=== PATIENT | male | born 1950 | race African-American/Black ===

== ENCOUNTER 2016-10-28 13:40 | Inpatient (IN) | payer MEDICARE ==
[2016-10-28] MEDS ORDERED: NS 0.9% 1000 ML* 1,000 ML IV ONE (14:18)
[2016-10-28 14:27] LABS: Hematocrit 43 % (42-52); Mean Corpuscular HGB Conc 33 g/dl (31-36); Mean Corpuscular Hemoglobin 31 pg (27-31); Mean Corpuscular Volume 94 fL (80-94); Mean Platelet Volume 10 um3 (7.4-10.4); Red Blood Count 4.54 10^6/ul (4.0-5.4); Red Cell Distribution Width 14 % (10.5-15); White Blood Count 4.7 10^3/ul (3.5-10.8)
[2016-10-28 14:39] LABS: ALT 25 U/L (7-52); Albumin 4.1 g/dL (3.2-5.2); Alkaline Phosphatase 47 U/L (34-104); BUN/Creatinine Ratio 15.2 (8-20); Blood Urea Nitrogen 17 mg/dL (6-24); CO2 Carbon Dioxide 24 mmol/L (22-32); Calcium 9.6 mg/dL (8.6-10.3); Chloride 106 mmol/L (101-111); Creatine Kinase 501 U/L (10-223); EGFR African American 84.6 (>60); EGFR Non-African American 65.8 (>60); Globulin 3.4 g/dL (2-4); Glucose 87 mg/dL (70-100); Sodium 137 mmol/L (133-145); Total Protein 7.5 g/dL (6.4-8.9)
--- NOTE | 2016-10-28 14:58 | RAD ---
Indication: Confusion. CT of the brain was performed without IV contrast. There is a large left isodense subdural hematoma with midline shift towards the right. The maximum thickness of the left-sided subdural is approximately 24 mm. There may be some high density material in the dependent portion. Small right isodense subdural hematoma is noted. Ventricular structures are shifted towards the right approximately 12 mm. Mild hydrocephalus is noted. IMPRESSION: LARGE LEFT SUBDURAL HEMATOMA WHICH IS ISODENSE. MIDLINE SHIFT TOWARDS THE RIGHT IS NOTED. SMALL RIGHT SUBDURAL HEMATOMA IS NOTED. FINDINGS DISCUSSED WITH DR. ANDREW AT 1450 HOURS.
--- NOTE | 2016-10-28 14:59 | RAD ---
Indication: Chest pain. Altered mental status. Subdural hematoma on head CT. Comparison: None. Technique: Upright AP 1430 hours Report: Elevated lung volumes. No pulmonary infiltrate, focal pulmonary lesion, pleural effusion, pneumothorax. The heart, pulmonary vasculature, and mediastinal contours are unremarkable. Healed LEFT fourth, fifth, and sixth rib fractures. No acute fracture evident. IMPRESSION: Elevated lung volumes suggest obstructive lung disease. No acute cardiopulmonary process evident.
[2016-10-28 15:15] LABS: TSH (Thyroid Stimulating Horm) 0.51 mcIU/mL (0.34-5.60)
[2016-10-28 15:23] LABS: Acetaminophen < 15 mcg/mL; Alcohol < 10 mg/dL (<10); Salicylate < 2.50 mg/dL (<30)
[2016-10-28 15:36] LABS: Urine Bacteria Absent (Absent); Urine Bilirubin Negative (Negative); Urine Glucose Negative (Negative); Urine Nitrite Negative (Negative)
--- NOTE | 2016-10-28 15:56 | ED ---
Sameera Kramer Matthew, scribed for Chance Yang MD on 10/28/16 at 1420 . Altered Mental Status - HPI Summary HPI Summary: A 66 y/o male presents to the ED with an altered mental status since 1 weeks ago. The patient is confused and does not known the month, year, president, exact hospitalist, or where he lives. He does know his name and that he's in the hospitalist. Associated symptoms include weakness of the lower extremities per his friends, which alternates from left to right. The patient is homeless and states that he has not eaten today. - History Of Current Complaint Chief Complaint: EDAltMentalStatus Stated Complaint: STROKE LIKE SYMPTOMS Time Seen by Provider: 10/28/16 14:11 Hx Obtained From: Patient Hx From Patient Unobtainable Due To: Altered Mental Status Onset/Duration: Still Present Timing: Constant Severity Initially: Moderate Severity Currently: Moderate Character: Confusion Aggravating Factor(s): Unknown Alleviating Factor(s): Unknown Associated Signs And Symptoms: Positive: Weakness - LE - Allergies/Home Medications Allergies/Adverse Reactions: Allergies Allergy/AdvReac Type Severity Reaction Status Date / Time Aspirin Allergy Unknown Unknown Verified 05/09/16 19:04 Reaction Details PMH/Surg Hx/FS Hx/Imm Hx Endocrine/Hematology History: Denies: Hx Anticoagulant Therapy, Hx Diabetes, Hx Thyroid Disease Cardiovascular History: Denies: Hx Hypertension, Hx Pacemaker/ICD Respiratory History: Denies: Hx Asthma, Hx Chronic Obstructive Pulmonary Disease (COPD) History: Denies: Hx Renal Disease Neurological History: Reports: Hx Seizures Denies: Hx Dementia Psychiatric History: Reports: Hx of Violent Episodes Against Others Denies: Hx Eating Disorder, Hx Substance Abuse - Immunization History Date of Tetanus Vaccine: UNK Date of Influenza Vaccine: UNK Infectious Disease History: No Infectious Disease History: Denies: Hx Hepatitis, Hx Human Immunodeficiency Virus (HIV), Hx of Known/ Suspected MRSA, Traveled Outside the [place] in Last 30 Days - Family History Family History: FHx of depression and EtOH abuse - Social History Alcohol Use: None Alcohol Amount: pt states "I drank beer tonight" Substance Use Type: Reports: Marijuana Substance Use Comment - Amount & Last Used: pt denied use tonight Smoking Status (MU): Heavy Every Day Tobacco Smoker Review of Systems Constitutional: Negative Eyes: Negative ENT: Negative Cardiovascular: Negative Respiratory: Negative Gastrointestinal: Negative Genitourinary: Negative Musculoskeletal: Negative Skin: Negative Positive: Weakness - LE Psychological: Normal All Other Systems Reviewed And Are Negative: Yes Physical Exam - Summary Physical Exam Summary: VITAL SIGNS: Reviewed. GENERAL: Patient is a dishevel who is lying comfortable in the stretcher. He seems to be confused, he is alert but not oriented. Patient is not in any acute respiratory distress. HEAD AND FACE: No signs of trauma. No ecchymosis, hematomas or skull depressions. No sinus tenderness. EYES: PERRLA, EOMI x 2, No injected conjunctiva, no nystagmus. No photophobia. EARS: Hearing grossly intact. Ear canals and tympanic membranes are within normal limits. MOUTH: Oropharynx within normal limits. NECK: Supple, trachea is midline, no adenopathy, no JVD, no carotid bruit CHEST: Symmetric, no tenderness at palpation LUNGS: Clear to auscultation bilaterally. No wheezing or crackles. CVS: Regular rate and rhythm, S1 and S2 present, no murmurs or gallops appreciated. ABDOMEN: Soft, non-tender. No signs of distention. No rebound no guarding, and no masses palpated. Bowel sounds are normal. EXTREMITIES: FROM in all major joints, no edema, no cyanosis or clubbing. NEURO: Alert but not oriented. No acute neurological deficits. Speech is normal. SKIN: Dry and warm Triage Information Reviewed: Yes Vital Signs On Initial Exam: Initial Vitals Temp Pulse Resp BP Pulse Ox 98.5 F 87 16 125/109 100 10/28/16 13:42 10/28/16 13:42 10/28/16 13:42 10/28/16 13:42 10/28/16 13:42 Vital Signs Reviewed: Yes Diagnostics - Vital Signs Vital Signs Temp Pulse Resp BP Pulse Ox 10/28/16 13:42 98.5 F 87 16 125/109 100 - Laboratory Lab Results: Lab Results 10/28/16 10/28/16 10/28/16 Range/Units 14:13 14:15 14:15 WBC 4.7 (3.5-10.8) 10^3/ul RBC 4.54 (4.0-5.4) 10^6/ul Hgb 14.0 (14.0-18.0) g/dl Hct 43 (42-52) % MCV 94 (80-94) fL MCH 31 (27-31) pg MCHC 33 (31-36) g/dl RDW 14 (10.5-15) % Plt Count 208 (150-450) 10^3/ul MPV 10 (7.4-10.4) um3 Neut % (Auto) 56.9 (38-83) % Lymph % (Auto) 26.0 (25-47) % [place] % (Auto) 12.7 H (1-9) % Eos % (Auto) 2.0 (0-6) % Baso % (Auto) 2.4 H (0-2) % Absolute Neuts (auto) 2.7 (1.5-7.7) 10^3/ul Absolute Lymphs (auto) 1.2 (1.0-4.8) 10^3/ul Absolute Monos (auto) 0.6 (0-0.8) 10^3/ul Absolute Eos (auto) 0.1 (0-0.6) 10^3/ul Absolute Basos (auto) 0.1 (0-0.2) 10^3/ul Absolute Nucleated RBC 0 10^3/ul Nucleated RBC % 0.1 Sodium 137 (133-145) mmol/L Potassium Pending Chloride 106 (101-111) mmol/L Carbon Dioxide 24 (22-32) mmol/L Anion Gap Pending BUN 17 (6-24) mg/dL Creatinine 1.12 (0.67-1.17) mg/dL Est GFR ( Amer) 84.6 (>60) Est GFR (Non-Af Amer) 65.8 (>60) BUN/Creatinine Ratio 15.2 (8-20) Glucose 87 (70-100) mg/dL POC Glucose (mg/dL) 98 (74-106) mg/dL Lactic Acid (0.5-2.0) mmol/L Calcium 9.6 (8.6-10.3) mg/dL Magnesium 2.0 (1.9-2.7) mg/dL Total Bilirubin 0.70 (0.2-1.0) mg/dL AST Pending ALT 25 (7-52) U/L Alkaline Phosphatase 47 (34-104) U/L Total Creatine Kinase 501 H (10-223) U/L Troponin I 0.00 (<0.04) ng/mL Total Protein 7.5 (6.4-8.9) g/dL Albumin 4.1 (3.2-5.2) g/dL Globulin 3.4 (2-4) g/dL Albumin/Globulin Ratio 1.2 (1-3) TSH Pending Salicylates Pending Acetaminophen Pending Serum Alcohol Pending 10/28/16 Range/Units 14:15 WBC (3.5-10.8) 10^3/ul RBC (4.0-5.4) 10^6/ul Hgb (14.0-18.0) g/dl Hct (42-52) % MCV (80-94) fL MCH (27-31) pg MCHC (31-36) g/dl RDW (10.5-15) % Plt Count (150-450) 10^3/ul MPV (7.4-10.4) um3 Neut % (Auto) (38-83) % Lymph % (Auto) (25-47) % [place] % (Auto) (1-9) % Eos % (Auto) (0-6) % Baso % (Auto) (0-2) % Absolute Neuts (auto) (1.5-7.7) 10^3/ul Absolute Lymphs (auto) (1.0-4.8) 10^3/ul Absolute Monos (auto) (0-0.8) 10^3/ul Absolute Eos (auto) (0-0.6) 10^3/ul Absolute Basos (auto) (0-0.2) 10^3/ul Absolute Nucleated RBC 10^3/ul Nucleated RBC % Sodium (133-145) mmol/L Potassium Chloride (101-111) mmol/L Carbon Dioxide (22-32) mmol/L Anion Gap BUN (6-24) mg/dL Creatinine (0.67-1.17) mg/dL Est GFR ( Amer) (>60) Est GFR (Non-Af Amer) (>60) BUN/Creatinine Ratio (8-20) Glucose (70-100) mg/dL POC Glucose (mg/dL) (74-106) mg/dL Lactic Acid 2.2 H* (0.5-2.0) mmol/L Calcium (8.6-10.3) mg/dL Magnesium (1.9-2.7) mg/dL Total Bilirubin (0.2-1.0) mg/dL AST ALT (7-52) U/L Alkaline Phosphatase (34-104) U/L Total Creatine Kinase (10-223) U/L Troponin I (<0.04) ng/mL Total Protein (6.4-8.9) g/dL Albumin (3.2-5.2) g/dL Globulin (2-4) g/dL Albumin/Globulin Ratio (1-3) TSH Salicylates Acetaminophen Serum Alcohol Result Diagrams: 10/28/16 14:15 10/28/16 14:15 Lab Statement: Any lab studies that have been ordered have been reviewed, and results considered in the medical decision making process. - Radiology CXR Xray Interpretation: No Acute Changes - IMPRESSION: Elevated lung volumes suggest obstructive lung disease. No acute cardiopulmonary process evident. Radiology Interpretation Completed By: Radiologist - CT Brain CT CT Interpretation: Positive (See Comments) - IMPRESSION: LARGE LEFT SUBDURAL HEMATOMA WHICH IS ISODENSE. MIDLINE SHIFT TOWARDS THE RIGHT IS NOTED. SMALL RIGHT SUBDURAL HEMATOMA IS NOTED. CT Interpretation Completed By: Radiologist - EKG 13:48 Cardiac Rate: NL - 73 bpm EKG Rhythm: Sinus Rhythm Ectopy: PVCs - multiple EKG Interpretation: No ST elevations Altered Mental Statu Course/Dx - Course Assessment/Plan: A 66 y/o male presents to the ED with a friend who reports the patient is having AMS. I was unable to obtain an HPI, because the patient has acute AMS. Blood work WNL expect a lactic acid 2.2 and total creatinine kinase of 501. Head CT read by radiologist shows large left subdural hematoma with midline shift to the right of approximately 12mm. He also has a small right subdural hematoma. I discussed my physical findings with Dr. Suazo. He assessed the patient and will admit the patient into his services with the possibility of performing a silvia hole. - Diagnoses Differential Diagnosis/HQI/PQRI: CVA, Intoxication, Intracranial Bleed, Metabolic Disorder, Overdose, TIA Discharge Diagnoses: Acute subdural hematoma - Provider Notifications Discussed Care Of Patient With: Dr. Leal (Radiology) at 14:50 -- I was notified of Brain CT findings. Dr. Suazo (Neurosurgery) at 14:58 -- Notified of patient's history and will evaluate the patient. Dr. Suazo (Neurosurgery) at 15:32 -- Will admit the patient. Discharge - Discharge Plan Condition: Stable Disposition: ADMITTED TO [facility] Referrals: Aidan Johnson, OSTEOPATHIC PHYSICIAN [Primary Care Provider] - The documentation as recorded by the Sameera esquivel Matthew accurately reflects the service I personally performed and the decisions made by Trey flores Walter, MD.
[2016-10-28 15:58] LABS: Benzodiazepine Urine Screen None Detected (None Detect)
[2016-10-28] MEDS ORDERED: Lidocain 1% EPI 1:100,000 * 30 ML MDV ONE (16:17)
[2016-10-28] MEDS ORDERED: Thrombin 5,000 UNITS* 1 APPLIC KIT - topical use - TOPICAL ONE (16:17)
[2016-10-28] MEDS ORDERED: fentaNYL* 50 MCG/ML 2 ML VIAL (100 MCG VIAL) ONE ×2 (16:22→16:56)
[2016-10-28] MEDS ORDERED: ceFAZolin 2 GM PREMIX (*) 2 GM/50 ML BAG IVPB ONE (16:30)
[2016-10-28] MEDS ORDERED: Propofol* 10 MG/ML 20 ML BTL IV PUSH ONE (16:52)
[2016-10-28] MEDS ORDERED: Ondansetron INJ* 2 MG/ML VIAL ONE (16:52)
[2016-10-28] MEDS ORDERED: Dexamethasone IV* 4 MG/ML 1 ML (4 MG) ONE (16:52)
[2016-10-28] MEDS ORDERED: Lidocaine 2% MPF* 2 ML VIAL ONE (16:52)
[2016-10-28] MEDS ORDERED: Succinylcholine* 20 MG/ML 10 ML VIAL ONE (16:52)
[2016-10-28] MEDS ORDERED: NS 0.9% IV ONE (17:00)
[2016-10-28] MEDS ORDERED: PHENYTOIN IV ONE (17:00)
[2016-10-28] MEDS ORDERED: Phenylephrine IV* 40 MCG/ML 10 ML SYRINGE ONE (17:17)
[2016-10-28] MEDS ORDERED: EPHEDrine (Pressors)* 50 MG/ML VIAL ONE (17:24)
[2016-10-28 17:28] LABS: AST 40 U/L (13-39); Anion Gap 7 mmol/L (2-11); Potassium 4.7 mmol/L (3.5-5.0)
[2016-10-28] MEDS ORDERED: fentaNYL* 50 MCG/ML 2 ML VIAL (100 MCG VIAL) IV PRN (17:50)
[2016-10-28] MEDS ORDERED: HYDROmorphone INJ* 1 MG/ML CARPUJECT SYRINGE IV PRN (17:50)
[2016-10-28] MEDS ORDERED: NS 0.9% 1000 ML* 1,000 ML IV SCH (18:00)
[2016-10-28] MEDS ORDERED: Morphine INJ* 4 MG/ML 1 ML CARPUJECT IV PRN (18:02)
[2016-10-28] MEDS ORDERED: Labetalol IV* 5 MG/ML 20 ML VIAL ONE (18:24)
[2016-10-28] MEDS ORDERED: hydrALAZINE IV* 20 MG/ML VIAL IV SLOW PU PRN (18:29)
[2016-10-28] MEDS ORDERED: Labetalol IV* 5 MG/ML 20 ML VIAL IV PUSH PRN (18:29)
[2016-10-28 19:01] LABS: Hematocrit 38 % (42-52); Hemoglobin 12.4 g/dl (14.0-18.0); Mean Corpuscular HGB Conc 33 g/dl (31-36); Mean Corpuscular Hemoglobin 31 pg (27-31); Mean Corpuscular Volume 94 fL (80-94); Mean Platelet Volume 10 um3 (7.4-10.4); Red Blood Count 4.03 10^6/ul (4.0-5.4); Red Cell Distribution Width 14 % (10.5-15); White Blood Count 5.7 10^3/ul (3.5-10.8)
[2016-10-28 19:12] LABS: BUN/Creatinine Ratio 14.7 (8-20); Calcium 8.8 mg/dL (8.6-10.3); EGFR African American 94.3 (>60); EGFR Non-African American 73.3 (>60); Potassium 4.1 mmol/L (3.5-5.0)
[2016-10-28] MEDS ORDERED: Phenytoin IV(*) 50 MG/ML 2 ML VIAL (100 MG) IV SCH (21:00)
[2016-10-28] MEDS: PHENYTOIN IVPB SCH (22:45)
[2016-10-28] MEDS: NS 0.9% IVPB SCH (22:45)
[2016-10-29] MEDS: PHENYTOIN IVPB SCH (05:21)
[2016-10-29] MEDS: NS 0.9% IVPB SCH (05:21)
--- NOTE | 2016-10-29 07:53 | RAD ---
HISTORY: Follow-up subdural drainage COMPARISONS: October 28, 2016, August 24, 2016 TECHNIQUE: Multiple contiguous axial CT scans were obtained of the head without intravenous contrast. Coronal and sagittal multiplanar reformations are also submitted for review. FINDINGS: HEMORRHAGE/INFARCT: There is no parenchymal hemorrhage. There is no acute infarct. MASSES/SHIFT: There is subfalcine shift to the right approximately 1 cm slightly decreased from the October 28, 2016 examination. There is effacement of the basal cisterns on the left. The foramen magnum is patent. There is no parenchymal mass. EXTRA-AXIAL SPACES: There is pneumocephalus. There is a large left mixed acute and subacute subdural hematoma. On the right, there is a crescentic high attenuation fluid collection measuring 1.6 cm in depth that, on coronal images appears superficial to the subdural drain and may be epidural. Surgical drains are noted in the subdural space bilaterally. On the left, this measures up to 2 cm in depth, decreased from the previous examination. On the right, there is minimal residual subdural separate from the aforementioned extra-axial fluid collection. SULCI AND VENTRICLES: There is mass effect upon the ventricles. CEREBRUM: There are no focal parenchymal abnormalities. BRAINSTEM: There are no focal parenchymal abnormalities. CEREBELLUM: There are no focal parenchymal abnormalities. VESSELS: The vessels are grossly normal. PARANASAL SINUSES: The paranasal sinuses are clear. ORBITS: The orbits are unremarkable. BONES AND SOFT TISSUE: There is postsurgical change to the skull. OTHER: None IMPRESSION: 1. STATUS POST PLACEMENT OF BILATERAL SUBDURAL DRAINS. THERE IS ASSOCIATED PNEUMOCEPHALUS. 2. THE SUBDURAL COLLECTIONS BILATERALLY ARE PERSISTENT BUT DECREASED IN SIZE. 3. THERE IS A CRESCENTIC HIGH ATTENUATION FLUID COLLECTION ON THE RIGHT THAT IS SUPERFICIAL TO THE SUBDURAL DRAIN AND MAY REPRESENT INTERVAL DEVELOPMENT OF AN EPIDURAL HEMATOMA. 4. THERE IS PERSISTENT, BUT DECREASING, SUBFALCINE SHIFT TO THE RIGHT WITH PARTIAL EFFACEMENT OF THE BASAL CISTERNS. 5. PRELIMINARY FINDINGS WERE DISCUSSED WITH DR. CORREA AT APPROXIMATELY 7:49 AM ON OCTOBER 29, 2016.
[2016-10-29] MEDS ORDERED: HYDROcodone/ACETAMIN 5-325 MG* 1 TAB PO PRN (10:28)
--- NOTE | 2016-10-29 10:33 | PN ---
Progress Note - Progress Note SOAP: Subjective: []POD # 1 Awake, alert denies headache eating breakfast this am Objective: []F/U CT marked pneumocephalus Slight increase in blood on right superiorly Neuro intact Assessment: []Drains pulled back slightly Plan: []Stable post op Will convert Dilantin to PO Hep lock fluids Overall looks good
[2016-10-29] MEDS: Phenytoin CAP(*) 100 MG CAP.ER PO SCH ×2 (15:20→22:04)
[2016-10-30] MEDS: Phenytoin CAP(*) 100 MG CAP.ER PO SCH ×3 (09:42→21:05)
--- NOTE | 2016-10-30 10:29 | PN ---
Progress Note - Progress Note SOAP: Subjective: []POD # 2 Doing well,complains of mild headache Drains intact Tolerating diet well Objective: []Neuro intact Less drainage from left Right drain removed Assessment: []Stable post op Plan: []Increase activity Will get up in chair
[2016-10-31] MEDS ORDERED: HYDROcodone/ACETAMIN 5-325 MG* 1 TAB PO PRN (07:31)
--- NOTE | 2016-10-31 07:34 | PN ---
Progress Note - Progress Note SOAP: Subjective: []POD # 3 Awake,alert No complaints of headache Drain with minimal output Objective: []Moves all extremities well Follows commands Assessment: [] Stable post op Plan: []Transfer to floor
[2016-10-31] MEDS: Phenytoin CAP(*) 100 MG CAP.ER PO SCH ×3 (08:45→19:48)
--- NOTE | 2016-11-01 04:48 | OP ---
DATE OF OPERATION: 10/28/16 - ROOM #334 DATE OF : 52 SURGEON: Reinaldo Suazo MD. ANESTHESIOLOGIST: Qi Ma MD ANESTHESIA: General. PRE-OP DIAGNOSIS: Bilateral subacute subdural hematomas. POST-OP DIAGNOSIS: Bilateral subacute subdural hematomas. OPERATIVE PROCEDURE: Bilateral silvia hole drainage of subacute subdural hematomas. DESCRIPTION OF PROCEDURE: The patient was placed on the operating table in the supine position and after satisfactory general anesthesia was obtained, both sides of the head were clipped, prepped and draped for bilateral placement of silvia holes for drainage of subdurals. The patient had presented with a very large left-sided subdural, extending from the frontal to the parieto-occipital areas. On the left side, one silvia hole was placed in the inferior frontal area just in front of the hairline, with a second silvia hole more superiorly in the frontoparietal junction area snf between the ear and the vertex. The initial silvia hole was the posterior silvia hole which was infiltrated with 1% Xylocaine with epinephrine. It was then turned down sharply to the periosteum which was stripped away. Utilizing the power drill, a single silvia hole was placed. The dura was then opened with the monopolar cautery and brisk flow of maroon colored subdural fluid exudate under pressure. The subdural space was then irrigated after which the left frontal silvia hole was opened in a similar manner. Upon opening the left frontal silvia hole, there was noted to be more subdural fluid expressed out through the posterior silvia hole. These silvia holes were then irrigated and the space appeared to communicate. A drain was placed in the more posterior silvia hole and tunneled out anteriorly. Gelfoam was then placed over the silvia hole defect and the galea reapproximated with 3-0 Vicryl, with the skin closed with skin clips. Attention was then directed to the right side where a silvia hole was made approximately 5 cm to the right of midline. This was in line with the posterior aspect of the ear. This incision was infiltrated with 1% Xylocaine with epinephrine, after which it was turned down sharply to the periosteum, which was stripped away. A single silvia hole was placed in this region and again, somewhat less impressive subdural fluid exudate under less pressure. The cortex was pushed downward carefully with a [place] dissector and additional subdural delivered for removal. A drain was then placed in this region as well, and tunneled out anteriorly. Both drains were hooked to an [id number] AccuDrain system and secured. The estimated blood loss was less than 50 cc, and the final sponge, patties, and needle counts were correct. The patient was taken to the recovery room, extubated, and in stable condition. [id number]/[facility] #: [id number] SAM
[2016-11-01] MEDS: Phenytoin CAP(*) 100 MG CAP.ER PO SCH ×3 (08:44→21:24)
--- NOTE | 2016-11-01 11:08 | PN ---
Progress Note - Progress Note SOAP: Subjective: [This is a 66 year old male s/p silvia holes for subacute subdural hematoma removal, POD #4. He is feeling well this morning and has no complaints. Denies headache. He has been up out of bed without difficulty. ] Objective: [ Vital Signs: Temp Pulse Resp BP Pulse Ox 98.1 F 56 16 124/64 100 11/01/16 08:09 11/01/16 08:09 11/01/16 08:09 11/01/16 08:09 11/01/16 08:09 General: Alert and laying comfortably in bed. Neuro: Speech is coherent. Motor and sensory intact. Extremities: Full ROM throughout.] Assessment: [This patient is stable, neurologically intact and is following a satisfactory post-operative course at this time. Pain is well controlled. ] Plan: [1. Repeat CT brain in morning. 2. Phenytoin level in morning. 3. Continue current pain management.]
--- NOTE | 2016-11-02 08:40 | RAD ---
HISTORY: Follow-up subdural drainage COMPARISONS: October 29, 2016 TECHNIQUE: Multiple contiguous axial CT scans were obtained of the head without intravenous contrast. FINDINGS: HEMORRHAGE/INFARCT: There is no parenchymal hemorrhage. There is no acute infarct. MASSES/SHIFT: There is minimal persistent subfalcine shift to the right of approximately 0.2 cm. This has decreased from the previous examination. The basal cisterns are preserved. EXTRA-AXIAL SPACES: Again noted is pneumocephalus, which is decreased. There is a left frontal parietal extra-axial fluid collection consistent with subacute subdural hematoma that measures up to 0.9 cm in depth. This is decreased in size compared to the previous examination. There is been interval removal of a subdural drain. Again noted is a right frontoparietal subdural fluid collection measuring approximately 0.5 cm in size. This is similar to the previous examination. Again noted is a high attenuation fluid collection that is crescentic and does not cross the sutures measuring up to 1.8 cm in depth. This is similar in size to the previous examination, though the blood products demonstrating evolutionary changes. There is been interval removal of a subdural drainage catheter of the right. SULCI AND VENTRICLES: The sulci and ventricles are normal in size and position for the patient's stated age. CEREBRUM: There are no focal parenchymal abnormalities. BRAINSTEM: There are no focal parenchymal abnormalities. CEREBELLUM: There are no focal parenchymal abnormalities. VESSELS: The vessels are grossly normal. PARANASAL SINUSES: The paranasal sinuses are clear. ORBITS: The orbits are unremarkable. BONES AND SOFT TISSUE: There is post surgical change to the skull. OTHER: None IMPRESSION: 1. MINIMAL PERSISTENT SUBFALCINE SHIFT, IMPROVED FROM THE PREVIOUS EXAMINATION. 2. THERE ARE PERSISTENT BILATERAL SUBDURAL HEMATOMAS, GREATER ON THE LEFT ON THE RIGHT. ON THE LEFT THIS IS DECREASED IN SIZE. ON THE RIGHT, THIS IS MINIMAL, BUT ESSENTIALLY STABLE. THERE HAS BEEN INTERVAL REMOVAL OF SUBDURAL DRAINAGE CATHETERS. 3. AGAIN NOTED IS A CRESCENTIC EXTRA-AXIAL FLUID COLLECTION CONCERNING FOR AN EPIDURAL HEMATOMA ALONG THE RIGHT POSTERIOR FRONTAL LOBE. THIS IS STABLE IN SIZE.
[2016-11-02] MEDS: Phenytoin CAP(*) 100 MG CAP.ER PO SCH ×3 (09:22→20:38)
[2016-11-03 07:52] VITALS: BP 127/78
[2016-11-03] MEDS: Phenytoin CAP(*) 100 MG CAP.ER PO SCH (08:19)
--- NOTE | 2016-11-03 10:04 | PN ---
Progress Note - Progress Note SOAP: Subjective: [This is a 66 year old male s/p silvia holes for subacute subdural hematoma evacuation on 10/28/15. He is feeling well this morning. He denies headache, vision changes, chest pain and difficulty breathing. He has been up ambulating independently without difficulty. Per social work and patient, he lives at a friends apartment and will return there after discharge. ] Objective: [ Vital Signs: Temp Pulse Resp BP Pulse Ox 98.3 F 61 18 127/78 100 11/03/16 07:41 11/03/16 07:41 11/03/16 08:00 11/03/16 07:41 11/03/16 08:00 General: Alert and oriented. No distress. Neuro: Speech is clear and coherent. Motor and sensory intact. Coordination intact. Incision: Incisions to the right and left head intact with dixie. No signs of infection. No swelling. Nontender. Extremities: Full ROM] Assessment: [This patient is following a satisfactory post-operative course. He is neurologically stable. ] Plan: [1. Discharge home today. 2. Discharge instructions were discussed with the patient. ]
--- NOTE | 2017-03-13 03:50 | DS ---
DISCHARGE SUMMARY: DATE OF ADMISSION: 10/28/16 DATE OF DISCHARGE: 11/03/16 DISCHARGE DIAGNOSIS: Bilateral subacute subdural hematoma. SPECIAL PROCEDURE: [place] hole for evacuation of subdural hematoma. HOSPITAL COURSE: This 66-year-old male presented to the [facility] ER. On the day of admission, actually he was found by his friend to be unresponsive. CT of the brain revealed bilateral subacute subdural hematoma. He was taken to the operating room for emergent life-saving surgical treatment. Bilateral silvia holes were placed for evacuation of subdural blood. Postoperatively, he was intact neurologically. Followup CT scan of brain on postop day 1 showed marked pneumocephalus. Drains were adjusted on postop day 1. On postop day 2, the right subdural drain was removed. He was eating and drinking without difficulty and communicating well and speech coherent. On postop day 3, he was transferred out of the ICU to the short stay surgical floor. He continued to improve there. He was ambulating independently. He was eating and drinking without difficulty. He denied headache and pain. On postop day 6, he was discharged home to the care of his friend. He is ambulating well and has no symptomatic complaints. He will be seen in the office in approximately 2 weeks for followup. DISCHARGE INSTRUCTIONS: Including wound care and activity level were discussed with the patient and provided. He was advised to return to the emergency room if he develops severe headache that does not improve over 1 hour. DISCHARGE MEDICATIONS: Phenytoin 300 mg by mouth at bedtime. JYOTSNA JAMES [id number]/[facility] #: [id number] SAM
== END 2016-11-03 10:45 | disposition home or self-care (01) | DRG 27 ==
LOC: ED 13:40 → OR 15:56 → ICU 17:54 → SSU 10-31 10:57
PROVIDERS: ADMIT Neurological Surgery; ATTEND Neurological Surgery
PROC: 00940ZZ Drainage of Intracranial Subdural Space, Open Approach (ICD-10-PCS; principal; 2016-10-28 16:30)
DX: S06.5X0A Traumatic subdural hemorrhage without loss of consciousness, initial encounter (principal); F17.200 Nicotine dependence, unspecified, uncomplicated; F12.90 Cannabis use, unspecified, uncomplicated; R29.6 Repeated falls; R51 Headache; Z59.0 Homelessness; Z88.8 Allergy status to other drugs, medicaments and biological substances; Z81.1 Family history of alcohol abuse and dependence; Z81.8 Family history of other mental and behavioral disorders; Z72.89 Other problems related to lifestyle
CPT/HCPCS: 36415; 70450; 71010; 80048; 80053; 80185; 80307; 80320; 80329; 81003; 81015; 82140; 82550; 83605; 83735; 84443; 84484; 85025; 87086; 93005; 94760; 99406; A9270-GY; G0480; J0330; J0690; J1100; J1165; J2270; J2405; J2704; J3010

== ENCOUNTER 2016-12-24 19:17 | Inpatient (IN) | payer MEDICARE ==
[2016-12-24] MEDS ORDERED: diPHENhydraMINE IV* 50 MG/ML 1 ml VIAL (BENADRYL) ONE (19:25)
[2016-12-24] MEDS ORDERED: LORazepam INJ* 2 MG/ML 1 ML VIAL ONE (19:25)
[2016-12-24] MEDS ORDERED: Haloperidol INJ IV/IM* 5 MG/ML AMP ONE (19:25)
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
--- NOTE | 2016-12-24 21:19 | RAD ---
INDICATION: Altered mental status, history subdural hematoma. COMPARISON: Comparison is made with a prior CT of the brain from [facility] 2016. TECHNIQUE: Contiguous axial sections of the brain were obtained from the skull base to the vertex without contrast. FINDINGS: There are bilateral subdural hematomas in the frontal parietal regions. The right subdural hematoma has decreased in size and density from the prior study measuring up to 7 mm in thickness and previously measuring up to 1.2 cm in thickness. The subdural hematoma on the left side is heterogeneous with mixed areas of decreased and increased density consistent with rehemorrhage. This subdural hematoma is slightly smaller than on the prior study measuring approximately 1.1 cm in greatest dimension and previously measuring up to 1.3 cm. There is mild compression of the left lateral ventricle and mild subfalcine herniation of approximately 2 to 3 mm. The mass effect on the lateral ventricles has decreased. The subfalcine herniation unchanged. In addition there is a small area of decreased attenuation present within the right caudate nucleus consistent with a chronic lacunar infarct. No other focal abnormalities are seen. There are bilateral surgical silvia holes present. There is a small air-fluid level within the left maxillary sinus. The visualized portion appeared nasal sinuses and mastoid air cells otherwise appear clear. IMPRESSION: THERE ARE BILATERAL SUBDURAL HEMATOMAS. THE SUBDURAL HEMATOMA ON THE RIGHT SIDE HAS DECREASED IN SIZE AND ATTENUATION FROM THE PRIOR STUDY. THE SUBDURAL HEMATOMA ON THE LEFT SIDE IS HETEROGENEOUS WITH AREAS OF INCREASED AND DECREASED DENSITY CONSISTENT WITH REHEMORRHAGE. THE LEFT-SIDED SUBDURAL HEMATOMA IS SLIGHTLY SMALLER THAN ON THE PRIOR EXAM. THERE IS MILD SUBFALCINE HERNIATION WHICH IS UNCHANGED.
[2016-12-24 22:22] LABS: Hematocrit 38 % (42-52); Hemoglobin 12.4 g/dl (14.0-18.0); Mean Corpuscular HGB Conc 33 g/dl (31-36); Mean Corpuscular Hemoglobin 32 pg (27-31); Mean Corpuscular Volume 96 fL (80-94); Mean Platelet Volume 9 um3 (7.4-10.4); Red Blood Count 3.95 10^6/ul (4.0-5.4); Red Cell Distribution Width 14 % (10.5-15); White Blood Count 8.8 10^3/ul (3.5-10.8)
[2016-12-24 22:36] LABS: ALT 15 U/L (7-52); AST 36 U/L (13-39); Albumin 3.6 g/dL (3.2-5.2); Alkaline Phosphatase 72 U/L (34-104); Anion Gap 8 mmol/L (2-11); BUN/Creatinine Ratio 11.8 (8-20); Blood Urea Nitrogen 13 mg/dL (6-24); CO2 Carbon Dioxide 26 mmol/L (22-32); Calcium 8.7 mg/dL (8.6-10.3); Chloride 106 mmol/L (101-111); EGFR African American 86.4 (>60); EGFR Non-African American 67.2 (>60); Globulin 3.1 g/dL (2-4); Glucose 65 mg/dL (70-100); Potassium 4.1 mmol/L (3.5-5.0); Sodium 140 mmol/L (133-145); Total Protein 6.7 g/dL (6.4-8.9)
[2016-12-24 23:02] LABS: Acetaminophen < 15 mcg/mL; Alcohol 105 mg/dL (<10); Salicylate < 2.50 mg/dL (<30)
[2016-12-24 23:12] LABS: TSH (Thyroid Stimulating Horm) 0.64 mcIU/mL (0.34-5.60)
[2016-12-25] MEDS ORDERED: Al Hydrox/Mg Hydrox/Simet LIQ* 30 ML UDC PO PRN (07:53)
[2016-12-25] MEDS ORDERED: Mouth Piece, Nicotine* 1 EACH CARTRIDGE INH SCH (07:53)
[2016-12-25] MEDS ORDERED: Acetaminophen TAB* 325 MG PO PRN (07:53)
[2016-12-25] MEDS: Haloperidol TAB* 5 MG PO SCH (08:34)
[2016-12-25] MEDS: Vitamin THERAPEUTIC TAB PO SCH (08:34)
[2016-12-25] MEDS ORDERED: Mouth Piece, Nicotine* 1 EACH CARTRIDGE ONE (13:24)
[2016-12-25] MEDS: Nicotine Inhaler* 10 MG AMP INH PRN ×2 (13:24→19:45)
[2016-12-25] MEDS ORDERED: Nicotine GUM* 2 MG PO PRN (13:26)
[2016-12-25] MEDS ORDERED: Nicotine Inhaler* 10 MG AMP INH PRN (13:26)
[2016-12-25] MEDS ORDERED: Mouth Piece, Nicotine* 1 EACH CARTRIDGE INH ONE (14:00)
[2016-12-25] MEDS ORDERED: Phenytoin CAP(*) 100 MG CAP.ER PO SCH (21:00)
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
[2016-12-26] MEDS: Nicotine Inhaler* 10 MG AMP INH PRN ×3 (05:45→13:40)
[2016-12-26 07:20] LABS: HDL Cholesterol 76.7 mg/dL
[2016-12-26 07:21] LABS: Phenytoin 4.9 mcg/mL (10-20)
[2016-12-26 08:40] VITALS: BP 136/72
[2016-12-26] MEDS: Vitamin THERAPEUTIC TAB PO SCH (08:40)
[2016-12-26] MEDS: Haloperidol TAB* 5 MG PO SCH (08:40)
--- NOTE | 2016-12-26 14:48 | PN ---
MHU: Group Therapy Note - Service Type Service Type: [id number] Group Psychotherapy - Cognitive Behavioral Group Therapy ( CBT):Patient was attentive and participatory in CBT programming this morning, and remained in good behavioral control. Patient expressed positive insights regarding relevant treatment interventions and goals.
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
== END 2016-12-26 14:25 | disposition home or self-care (01) | DRG 885 ==
LOC: ED 19:17 → BSU 12-25 05:49
PROVIDERS: ADMIT Psychiatry & Neurology Psychiatry; ATTEND Psychiatry & Neurology Psychiatry
DX: F20.9 Schizophrenia, unspecified (principal); R45.850 Homicidal ideations; I10 Essential (primary) hypertension; E78.5 Hyperlipidemia, unspecified; F10.129 Alcohol abuse with intoxication, unspecified; Y90.5 Blood alcohol level of 100-119 mg/100 ml; F17.210 Nicotine dependence, cigarettes, uncomplicated; Z87.820 Personal history of traumatic brain injury
CPT/HCPCS: 36415; 70450; 80053; 80061; 80185; 80320; 80329; 83036; 84443; 85025; A9270-GY; G0480; J1200; J1630; J2060

== ENCOUNTER 2016-12-30 15:54 | Inpatient (IN) | payer MEDICARE ==
[2016-12-30 16:41] LABS: Hematocrit 34 % (42-52); Hemoglobin 11.3 g/dl (14.0-18.0); Mean Corpuscular HGB Conc 34 g/dl (31-36); Mean Corpuscular Hemoglobin 32 pg (27-31); Mean Corpuscular Volume 95 fL (80-94); Mean Platelet Volume 8 um3 (7.4-10.4); Red Blood Count 3.57 10^6/ul (4.0-5.4); Red Cell Distribution Width 15 % (10.5-15); White Blood Count 7.2 10^3/ul (3.5-10.8)
[2016-12-30 16:56] LABS: ALT 16 U/L (7-52); AST 32 U/L (13-39); Albumin 3.9 g/dL (3.2-5.2); Alkaline Phosphatase 70 U/L (34-104); Anion Gap 9 mmol/L (2-11); BUN/Creatinine Ratio 12.7 (8-20); Blood Urea Nitrogen 14 mg/dL (6-24); CO2 Carbon Dioxide 22 mmol/L (22-32); Calcium 9.3 mg/dL (8.6-10.3); Chloride 102 mmol/L (101-111); EGFR African American 86.4 (>60); EGFR Non-African American 67.2 (>60); Globulin 3.1 g/dL (2-4); Glucose 75 mg/dL (70-100); Potassium 4.2 mmol/L (3.5-5.0); Sodium 133 mmol/L (133-145)
[2016-12-30 17:05] LABS: Acetaminophen < 15 mcg/mL; Alcohol < 10 mg/dL (<10); Salicylate < 2.50 mg/dL (<30)
[2016-12-30 17:15] LABS: TSH (Thyroid Stimulating Horm) 1.79 mcIU/mL (0.34-5.60)
[2016-12-30] MEDS ORDERED: Nicotine GUM* 2 MG PO PRN (21:15)
[2016-12-30] MEDS ORDERED: Al Hydrox/Mg Hydrox/Simet LIQ* 30 ML UDC PO PRN (21:15)
[2016-12-30] MEDS ORDERED: Mouth Piece, Nicotine* 1 EACH CARTRIDGE INH SCH (21:15)
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
[2016-12-31] MEDS: Nicotine Inhaler* 10 MG AMP INH PRN ×2 (08:33→19:39)
[2016-12-31] MEDS: Haloperidol TAB* 5 MG PO SCH ×2 (08:34→08:37)
[2016-12-31] MEDS: Vitamin THERAPEUTIC TAB PO SCH (08:34)
[2016-12-31] MEDS: Phenytoin CAP(*) 100 MG CAP.ER PO SCH (08:35)
[2016-12-31] MEDS: Cyanocobalamin TAB* 500 MCG PO SCH (14:00)
[2016-12-31] MEDS: Thiamine TAB* 100 MG TAB PO SCH (14:01)
[2016-12-31] MEDS: Folic Acid TAB* 1 MG PO SCH (14:01)
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
[2016-12-31] MEDS: Divalproex DR TAB(*) 250 MG PO SCH (21:06)
[2017-01-01] MEDS: Acetaminophen TAB* 325 MG PO PRN (07:35)
[2017-01-01] MEDS: Nicotine Inhaler* 10 MG AMP INH PRN ×6 (07:36→21:19)
[2017-01-01] MEDS: Haloperidol TAB* 5 MG PO SCH (09:54)
[2017-01-01] MEDS: Cyanocobalamin TAB* 500 MCG PO SCH (09:54)
[2017-01-01] MEDS: Phenytoin CAP(*) 100 MG CAP.ER PO SCH (09:54)
[2017-01-01] MEDS: Folic Acid TAB* 1 MG PO SCH (09:54)
[2017-01-01] MEDS: Divalproex DR TAB(*) 250 MG PO SCH ×2 (09:54→21:14)
[2017-01-01] MEDS: Vitamin THERAPEUTIC TAB PO SCH (09:55)
[2017-01-01] MEDS: Thiamine TAB* 100 MG TAB PO SCH (09:55)
[2017-01-02] MEDS: Acetaminophen TAB* 325 MG PO PRN (07:41)
[2017-01-02] MEDS: Haloperidol TAB* 5 MG PO SCH (08:53)
[2017-01-02] MEDS: Phenytoin CAP(*) 100 MG CAP.ER PO SCH (08:53)
[2017-01-02] MEDS: Nicotine Inhaler* 10 MG AMP INH PRN ×5 (08:54→21:17)
[2017-01-02] MEDS: Vitamin THERAPEUTIC TAB PO SCH (08:54)
[2017-01-02] MEDS: Folic Acid TAB* 1 MG PO SCH (08:54)
[2017-01-02] MEDS: Thiamine TAB* 100 MG TAB PO SCH (08:54)
[2017-01-02] MEDS: Divalproex DR TAB(*) 250 MG PO SCH ×2 (08:54→21:16)
[2017-01-02] MEDS: Cyanocobalamin TAB* 500 MCG PO SCH (08:54)
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
[2017-01-03] MEDS: Nicotine Inhaler* 10 MG AMP INH PRN ×6 (04:15→23:30)
[2017-01-03] MEDS: Phenytoin CAP(*) 100 MG CAP.ER PO SCH (08:26)
[2017-01-03] MEDS: Cyanocobalamin TAB* 500 MCG PO SCH (08:26)
[2017-01-03] MEDS: Vitamin THERAPEUTIC TAB PO SCH (08:26)
[2017-01-03] MEDS: Divalproex DR TAB(*) 250 MG PO SCH ×2 (08:26→20:29)
[2017-01-03] MEDS: Thiamine TAB* 100 MG TAB PO SCH (08:26)
[2017-01-03] MEDS: Folic Acid TAB* 1 MG PO SCH (08:26)
[2017-01-03] MEDS: Haloperidol TAB* 5 MG PO SCH (08:26)
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
[2017-01-04] MEDS: Nicotine Inhaler* 10 MG AMP INH PRN ×4 (06:08→19:20)
[2017-01-04] MEDS: Phenytoin CAP(*) 100 MG CAP.ER PO SCH (09:10)
[2017-01-04] MEDS: Folic Acid TAB* 1 MG PO SCH (09:11)
[2017-01-04] MEDS: Vitamin THERAPEUTIC TAB PO SCH (09:11)
[2017-01-04] MEDS: Cyanocobalamin TAB* 500 MCG PO SCH (09:11)
[2017-01-04] MEDS: Divalproex DR TAB(*) 250 MG PO SCH ×2 (09:12→20:51)
[2017-01-04] MEDS: Haloperidol TAB* 5 MG PO SCH (09:12)
[2017-01-04] MEDS: Thiamine TAB* 100 MG TAB PO SCH (09:12)
--- NOTE | 2017-01-04 11:19 | PN ---
[facility]: Group Therapy Note - Service Type Service Type: [id number] Group Psychotherapy - Cognitive Behavioral Group Therapy ( CBT):Patient presented in CBT programming as disorganized and disruptive in discussion and needed repeated redirection to attend to presented materials.
[2017-01-04] MEDS ORDERED: hydrALAZINE TAB* 25 MG PO PRN (13:29)
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
[2017-01-04] MEDS: Hydrochlorothiazide TAB* 50 MG PO SCH (13:51)
[2017-01-05] MEDS: Nicotine Inhaler* 10 MG AMP INH PRN ×4 (04:52→22:39)
[2017-01-05] MEDS: Folic Acid TAB* 1 MG PO SCH (09:02)
[2017-01-05] MEDS: Cyanocobalamin TAB* 500 MCG PO SCH (09:02)
[2017-01-05] MEDS: Hydrochlorothiazide TAB* 50 MG PO SCH (09:02)
[2017-01-05] MEDS: Thiamine TAB* 100 MG TAB PO SCH (09:03)
[2017-01-05] MEDS: Divalproex DR TAB(*) 250 MG PO SCH ×2 (09:03→21:06)
[2017-01-05] MEDS: Haloperidol TAB* 5 MG PO SCH (09:03)
[2017-01-05] MEDS: Vitamin THERAPEUTIC TAB PO SCH (09:03)
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
[2017-01-06] MEDS: Nicotine Inhaler* 10 MG AMP INH PRN ×6 (03:42→21:42)
[2017-01-06] MEDS: Vitamin THERAPEUTIC TAB PO SCH (09:30)
[2017-01-06] MEDS: Thiamine TAB* 100 MG TAB PO SCH (09:30)
[2017-01-06] MEDS: Cyanocobalamin TAB* 500 MCG PO SCH (09:30)
[2017-01-06] MEDS: Divalproex DR TAB(*) 250 MG PO SCH (09:30)
[2017-01-06] MEDS: Hydrochlorothiazide TAB* 50 MG PO SCH (09:30)
[2017-01-06] MEDS: Folic Acid TAB* 1 MG PO SCH (09:31)
[2017-01-06] MEDS: Haloperidol TAB* 5 MG PO SCH (09:31)
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
[2017-01-06] MEDS: Divalproex DR TAB(*) 500 MG PO SCH (21:03)
[2017-01-07] MEDS: Nicotine Inhaler* 10 MG AMP INH PRN ×5 (00:56→18:40)
[2017-01-07] MEDS: Acetaminophen TAB* 325 MG PO PRN (01:23)
[2017-01-07] MEDS: Haloperidol TAB* 5 MG PO SCH (09:05)
[2017-01-07] MEDS: Divalproex DR TAB(*) 500 MG PO SCH ×2 (09:05→21:32)
[2017-01-07] MEDS: Cyanocobalamin TAB* 500 MCG PO SCH (09:05)
[2017-01-07] MEDS: Folic Acid TAB* 1 MG PO SCH (09:05)
[2017-01-07] MEDS: Thiamine TAB* 100 MG TAB PO SCH (09:05)
[2017-01-07] MEDS: Vitamin THERAPEUTIC TAB PO SCH (09:05)
[2017-01-07] MEDS: Hydrochlorothiazide TAB* 50 MG PO SCH (09:05)
[2017-01-08] MEDS: Nicotine Inhaler* 10 MG AMP INH PRN ×4 (00:30→18:19)
[2017-01-08] MEDS: Divalproex DR TAB(*) 500 MG PO SCH ×2 (09:03→20:33)
[2017-01-08] MEDS: Folic Acid TAB* 1 MG PO SCH (09:03)
[2017-01-08] MEDS: Haloperidol TAB* 5 MG PO SCH (09:04)
[2017-01-08] MEDS: Hydrochlorothiazide TAB* 50 MG PO SCH (09:04)
[2017-01-08] MEDS: Thiamine TAB* 100 MG TAB PO SCH (09:04)
[2017-01-08] MEDS: Cyanocobalamin TAB* 500 MCG PO SCH (09:04)
[2017-01-08] MEDS: Vitamin THERAPEUTIC TAB PO SCH (09:05)
[2017-01-08] MEDS: Acetaminophen TAB* 325 MG PO PRN (09:07)
[2017-01-09] MEDS: Nicotine Inhaler* 10 MG AMP INH PRN ×4 (04:30→14:29)
[2017-01-09] MEDS: Cyanocobalamin TAB* 500 MCG PO SCH (08:49)
[2017-01-09] MEDS: Divalproex DR TAB(*) 500 MG PO SCH (08:49)
[2017-01-09] MEDS: Thiamine TAB* 100 MG TAB PO SCH (08:49)
[2017-01-09] MEDS: Haloperidol TAB* 5 MG PO SCH (08:49)
[2017-01-09] MEDS: Hydrochlorothiazide TAB* 50 MG PO SCH (08:49)
[2017-01-09] MEDS: Vitamin THERAPEUTIC TAB PO SCH (08:50)
[2017-01-09] MEDS: Folic Acid TAB* 1 MG PO SCH (08:50)
[2017-01-09 17:46] VITALS: BP 144/83
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
== END 2017-01-09 16:18 | disposition home or self-care (01) | DRG 885 ==
LOC: ED 15:54 → BSU 21:04
PROVIDERS: ADMIT Psychiatry & Neurology Psychiatry; ATTEND Psychiatry & Neurology Psychiatry
DX: F20.0 Paranoid schizophrenia (principal); Z59.0 Homelessness; I10 Essential (primary) hypertension; E78.5 Hyperlipidemia, unspecified; F17.210 Nicotine dependence, cigarettes, uncomplicated; F10.10 Alcohol abuse, uncomplicated; Y90.0 Blood alcohol level of less than 20 mg/100 ml; Z81.8 Family history of other mental and behavioral disorders; Z87.820 Personal history of traumatic brain injury
CPT/HCPCS: 36415; 80053; 80164; 80185; 80320; 80329; 84443; 85025; 90853; 95819; 99222; 99231; 99238; A9270-GY; G0480

== ENCOUNTER 2017-07-04 21:08 | Emergency (ER) | payer MEDICARE ==
[2017-07-04] MEDS ORDERED: oxyCODONE/Acetamin 5/325 MG* TAB PO ONE (22:05)
[2017-07-04 22:38] LABS: Hematocrit 41 % (42-52); Hemoglobin 13.5 g/dl (14.0-18.0); Mean Corpuscular HGB Conc 33 g/dl (31-36); Mean Corpuscular Hemoglobin 31 pg (27-31); Mean Corpuscular Volume 95 fL (80-94); Mean Platelet Volume 8 um3 (7.4-10.4); Red Cell Distribution Width 14 % (10.5-15); White Blood Count 6.8 10^3/ul (3.5-10.8)
[2017-07-04 22:40] LABS: Comments Flag Yes
[2017-07-04 22:49] LABS: Albumin 4.1 g/dL (3.2-5.2); BUN/Creatinine Ratio 10.7 (8-20); Calcium 9.6 mg/dL (8.6-10.3); EGFR African American 84.4 (>60); EGFR Non-African American 65.6 (>60); Globulin 3.3 g/dL (2-4); Total Bilirubin 0.6 mg/dL (0.2-1.0); Total Protein 7.4 g/dL (6.4-8.9)
[2017-07-04] MEDS ORDERED: HYDROcodone/ACETAMIN 5-325 MG* 1 TAB PO ONE (23:17)
[2017-07-04 23:50] VITALS: BP 139/76
--- NOTE | 2017-07-05 07:45 | RAD ---
HISTORY: Fall, rib pain COMPARISONS: None VIEWS: 7, Frontal view of the chest with frontal and oblique views of the right hemithorax. FINDINGS: There is a nondisplaced fracture of the right 10th rib posteriorly. There is no appreciable pneumothorax. There are remote posttraumatic deformity to the left hemithorax. Mild degenerative changes are noted of the right shoulder. IMPRESSION: NONDISPLACED FRACTURE OF THE RIGHT 10TH RIB. NO APPRECIABLE PNEUMOTHORAX.
--- NOTE | 2017-07-06 08:14 | ED ---
Jason Kramer Thomas, scribed for Sharif Hall MD on 07/04/17 at 2207 . Complex/Multi-Sys Presentation - HPI Summary HPI Summary: The patient is a 67 y/o M who presents to the ED c/o R-sided chest wall pain s/ p falling on a coffee table five days ago. He denies LOC and head trauma. He does admit to drinking on the day of the injury. He additionally c/o cold symptoms and a cough. He has been taking ibuprofen for his pain, which relieved his pain somewhat. He denies F/C/S. PMHx: schizophrenia. He denies SI, paranoia , and hearing voices. He has been homeless for 15 months. - History Of Current Complaint Chief Complaint: EDChestWallPain Time Seen by Provider: 07/04/17 21:41 Hx Obtained From: Patient Onset/Duration: Lasting Days - 4 days ago, Still Present Timing: Constant Severity Currently: Moderate Location: Pain At: - R-sided chest wall Aggravating Factor(s): None. Alleviating Factor(s): None. Associated Signs And Symptoms: Positive: Cough. Negative: Fever, Other - NEG: LOC, head trauma, chills, sweats Related History: Other - Fall into coffee table - Allergies/Home Medications Allergies/Adverse Reactions: Allergies Allergy/AdvReac Type Severity Reaction Status Date / Time Aspirin Allergy Unknown GI Upset Verified 07/04/17 21:16 PMH/Surg Hx/FS Hx/Imm Hx Previously Healthy: No Endocrine/Hematology History: Denies: Hx Anticoagulant Therapy, Hx Diabetes, Hx Thyroid Disease Cardiovascular History: Denies: Hx Hypertension, Hx Pacemaker/ICD Respiratory History: Denies: Hx Asthma, Hx Chronic Obstructive Pulmonary Disease (COPD) History: Denies: Hx Renal Disease Neurological History: Reports: Hx Seizures Denies: Hx Dementia Psychiatric History: Reports: Hx Anxiety, Hx Depression, Hx Post Traumatic Stress Disorder, Hx Inpatient Treatment, Hx Community Mental Health Tx, Hx Schizophrenia, Hx Suicide Attempt, Hx of Violent Episodes Against Others Denies: Hx Attention Deficit Hyperactivity Disorder, Hx Eating Disorder, Hx Panic Disorder, Hx Bipolar Disorder, Hx Substance Abuse - Surgical History Surgery Procedure, Year, and Place: CRAINIOTOMY - Immunization History Date of Tetanus Vaccine: UNK Date of Influenza Vaccine: UNK Infectious Disease History: No Infectious Disease History: Denies: Hx Hepatitis, Hx Human Immunodeficiency Virus (HIV), Hx of Known/ Suspected MRSA, Traveled Outside the US in Last 30 Days - Family History Known Family History: Positive: Other - Yes - Depression (Parents), Yes - EtOH abuse (Parents) Family History: FHx of depression and EtOH abuse - Social History Alcohol Use: Occasionally Alcohol Amount: "Every now and then" Substance Use Type: Reports: Marijuana Substance Use Comment - Amount & Last Used: pt denied use tonight Smoking Status (MU): Heavy Every Day Tobacco Smoker Type: Cigarettes Review of Systems Negative: Fever, Chills Negative: Erythema - eyes Negative: Sore Throat Negative: Chest Pain Positive: Cough. Negative: Shortness Of Breath Negative: Abdominal Pain, Vomiting, Nausea Negative: dysuria, hematuria Positive: Other - POS: R-sided chest wall pain. Negative: Myalgia, Edema - legs Negative: Rash Neurological: Other - NEG: dizziness, LOC, head trauma All Other Systems Reviewed And Are Negative: Yes Physical Exam - Summary Physical Exam Summary: Constitutional: Well-developed, Well-nourished, Alert. (-) Distressed Skin: Warm, Dry HENT: Normocephalic; Atraumatic Eyes: He has significant scleral icterus. Neck: Musculoskeletal ROM normal neck. (-) JVD, (-) Stridor, (-) Tracheal deviation Cardio: Rhythm regular, rate normal, Heart sounds normal; Intact distal pulses; The pedal pulses are 2+ and symmetric. Radial pulses are 2+ and symmetric. (-) Murmur Pulmonary/Chest wall: Effort normal. He is tender to his lateral tenth rib. (-) Respiratory distress, (-) Wheezes, (-) Rales Abd: Soft, (-) Tenderness, (-) Distension, (-) Guarding, (-) Rebound Musculoskeletal: (-) Edema Lymph: (-) Cervical adenopathy Neuro: Alert, Oriented x3 Psych: Mood and affect Normal Triage Information Reviewed: Yes Vital Signs On Initial Exam: Initial Vitals Temp Pulse Resp BP Pulse Ox 99.3 F 79 16 149/79 100 07/04/17 21:17 07/04/17 21:17 07/04/17 21:17 07/04/17 21:17 07/04/17 21:17 Vital Signs Reviewed: Yes Diagnostics - Vital Signs Vital Signs Temp Pulse Resp BP Pulse Ox 07/04/17 21:17 99.3 F 79 16 149/79 100 - Laboratory Result Diagrams: 07/04/17 22:20 07/04/17 22:20 Lab Statement: Any lab studies that have been ordered have been reviewed, and results considered in the medical decision making process. - Radiology CXR with ribs Xray Interpretation: Positive (See Comments) - 10th rib fracture Radiology Interpretation Completed By: ED Physician Complex Multi-Symp Course/Dx Assessment/Plan: The patient is a 67 y/o M who presents to the ED c/o R-sided chest wall pain s/p falling on a coffee table five days ago. He denies LOC and head trauma. He does admit to drinking on the day of the injury. He additionally c/o cold symptoms and a cough. He has been taking ibuprofen for his pain, which relieved his pain somewhat. He denies F/C/S. PMHx: schizophrenia. He denies SI, paranoia, and hearing voices. He has been homeless for 15 months. He is tender to his lateral tenth rib. He has significant scleral icterus. In the ED course the patient was given Oxycodone. Bloodwork shows Hgb 13.5, Hct 41. CXR with Ribs shows 10th rib fracture. The patient was diagnosed with a 10th rib fracture and alcohol abuse. He is discharged home. Patient is agreeable to this plan. - Diagnoses Provider Diagnoses: Fracture of tenth rib, ETOH abuse Discharge - Discharge Plan Condition: Stable Disposition: HOME Prescriptions: HYDROcodone/ACETAMIN 5-325 MG* [[place] 5-325 TAB*] 1 tab PO Q6H PRN #12 tab MDD 4 PRN Reason: Pain Scale 6-10 Patient Education Materials: Rib Fracture (ED), Abuse of Alcohol (ED), Alcohol Use Disorder (ED) Referrals: Aidan Johnson, MORTGAGE MANAGER [Primary Care Provider] - 4 Days Additional Instructions: Return to the emergency department for any new or worsening symptoms. The documentation as recorded by the Jason esquivel Thomas accurately reflects the service I personally performed and the decisions made by , Sharif Hall MD.
== END 2017-07-04 23:58 | disposition home or self-care (01) ==
LOC: ED 21:08
DX: S22.31XA Fracture of one rib, right side, initial encounter for closed fracture (principal); F10.129 Alcohol abuse with intoxication, unspecified; F20.9 Schizophrenia, unspecified; Y92.9 Unspecified place or not applicable; Z59.0 Homelessness; W22.8XXA Striking against or struck by other objects, initial encounter; W19.XXXA Unspecified fall, initial encounter; F17.210 Nicotine dependence, cigarettes, uncomplicated
CPT/HCPCS: 36415; 80053; 85027; 85610; 85730; 99282; A9270-GY

== ENCOUNTER 2017-08-04 22:29 | Inpatient (IN) | payer MEDICARE ==
[2017-08-04] MEDS ORDERED: LORazepam INJ* 2 MG/ML 1 ML VIAL ONE (22:40)
[2017-08-04] MEDS ORDERED: diPHENhydraMINE IV* 50 MG/ML 1 ml VIAL (BENADRYL) ONE (22:40)
[2017-08-04] MEDS ORDERED: Haloperidol INJ IV/IM* 5 MG/ML AMP ONE (22:40)
[2017-08-04] MEDS ORDERED: LORazepam INJ* 2 MG/ML 1 ML VIAL IM ONE (22:43)
[2017-08-04] MEDS ORDERED: diPHENhydraMINE IV* 50 MG/ML 1 ml VIAL (BENADRYL) IV ONE (22:44)
[2017-08-04] MEDS ORDERED: Haloperidol INJ IV/IM* 5 MG/ML AMP IM ONE (22:44)
[2017-08-04] MEDS ORDERED: diPHENhydraMINE IV* 50 MG/ML 1 ml VIAL (BENADRYL) IM ONE (22:55)
[2017-08-05] MEDS ORDERED: NS 0.9% 1000 ML* 1,000 ML IV ONE (01:19)
[2017-08-05 01:27] LABS: Hematocrit 39 % (42-52); Hemoglobin 13.3 g/dl (14.0-18.0); Mean Corpuscular HGB Conc 34 g/dl (31-36); Mean Corpuscular Hemoglobin 32 pg (27-31); Mean Corpuscular Volume 96 fL (80-94); Mean Platelet Volume 8 um3 (7.4-10.4); Red Blood Count 4.09 10^6/ul (4.0-5.4); Red Cell Distribution Width 15 % (10.5-15); White Blood Count 5.4 10^3/ul (3.5-10.8)
[2017-08-05 01:49] LABS: Acetaminophen < 15 mcg/mL; Alcohol < 10 mg/dL (<10); Salicylate < 2.50 mg/dL (<30)
[2017-08-05 01:50] LABS: ALT 58 U/L (7-52); AST 67 U/L (13-39); Alkaline Phosphatase 52 U/L (34-104); Anion Gap 4 mmol/L (2-11); Blood Urea Nitrogen 12 mg/dL (6-24); CO2 Carbon Dioxide 30 mmol/L (22-32); Calcium 9.5 mg/dL (8.6-10.3); Chloride 99 mmol/L (101-111); EGFR African American 68.6 (>60); EGFR Non-African American 53.3 (>60); Globulin 3.3 g/dL (2-4); Glucose 74 mg/dL (70-100); Potassium 4.6 mmol/L (3.5-5.0); Sodium 133 mmol/L (133-145); Total Protein 7.3 g/dL (6.4-8.9)
[2017-08-05 02:04] LABS: TSH (Thyroid Stimulating Horm) 1.35 mcIU/mL (0.34-5.60)
[2017-08-05] MEDS ORDERED: Al Hydrox/Mg Hydrox/Simet LIQ* 30 ML UDC PO PRN (05:09)
[2017-08-05] MEDS ORDERED: Mouth Piece, Nicotine* 1 EACH CARTRIDGE INH SCH (05:09)
--- NOTE | 2017-08-05 06:11 | ED ---
Geovanna Kramer Rebecca, scribed for Johana Herrera MD on 08/04/17 at 2245 . Psychiatric Complaint - HPI Summary HPI Summary: Pt is a 67 y/o M BIBA accompanied by police who presents to the ED as a 941 due to SIs. Per EMS, earlier, the pt was stating that he was suicidal and wanted the police to kill him. He had been trying to get into a cops vehicle and was tased 2x with the barbs removed [employer]. Though, upon EMS arrival, the pt denies SIs /HIs. Level 5 caveat due to intoxication. - History Of Current Complaint Chief Complaint: EDMentalHealth Hx Obtained From: EMS Hx From Patient Unobtainable Due To: Other - Intoxication Onset/Duration: Still Present Related History: Positive For: Prior Psychiatric Issues - Anxiety, depression, schizophrenia Has Suicidal: Reports: Thoughts - Voiced earlier, currently denies - Allergies/Home Medications Allergies/Adverse Reactions: Allergies Allergy/AdvReac Type Severity Reaction Status Date / Time Aspirin Allergy Unknown GI Upset Verified 08/04/17 22:48 PMH/Surg Hx/FS Hx/Imm Hx Endocrine/Hematology History: Denies: Hx Anticoagulant Therapy, Hx Diabetes, Hx Thyroid Disease Cardiovascular History: Denies: Hx Hypertension, Hx Pacemaker/ICD Respiratory History: Denies: Hx Asthma, Hx Chronic Obstructive Pulmonary Disease (COPD) History: Denies: Hx Renal Disease Neurological History: Reports: Hx Seizures Denies: Hx Dementia Psychiatric History: Reports: Hx Anxiety, Hx Depression, Hx Post Traumatic Stress Disorder, Hx Inpatient Treatment, Hx Community Mental Health Tx, Hx Schizophrenia, Hx Suicide Attempt, Hx of Violent Episodes Against Others Denies: Hx Attention Deficit Hyperactivity Disorder, Hx Eating Disorder, Hx Panic Disorder, Hx Bipolar Disorder, Hx Substance Abuse - Surgical History Surgery Procedure, Year, and Place: CRAINIOTOMY - Immunization History Date of Tetanus Vaccine: UNK Date of Influenza Vaccine: UNK Infectious Disease History: No Infectious Disease History: Denies: Hx Hepatitis, Hx Human Immunodeficiency Virus (HIV), Hx of Known/ Suspected MRSA, Traveled Outside the US in Last 30 Days - Family History Known Family History: Positive: Other - Yes - Depression (Parents), Yes - EtOH abuse (Parents) Family History: FHx of depression and EtOH abuse - Social History Alcohol Use: Occasionally Alcohol Amount: "Every now and then" Substance Use Type: Reports: Marijuana Substance Use Comment - Amount & Last Used: pt denied use tonight Smoking Status (MU): Heavy Every Day Tobacco Smoker Type: Cigarettes Review of Systems - ROS Summary Review of Systems Summary: Level 5 caveat due to intoxication. Positive: Other - SIs voiced earlier, to EMS pt denies SIs, HIs All Other Systems Reviewed And Are Negative: No Physical Exam - Summary Physical Exam Summary: Appearance: Alert, smells of alcohol, conversing with people around the room Skin: Warm, dry, no mottling, no rashes, no contusions HEENT: EOMI, PERRL, moist mucous membranes Neck: No masses on the neck, supple Respiratory: Clear to auscultation, breath sounds present, no rales, no rhonchi , no wheezes Cardiovascular: RRR, pulses are symmetrical in both lower and upper extremities Musculoskeletal: No CVA tenderness, no obvious deformity, moving all extremities in a grossly normal manner Neurological: Alert Psychiatric: Conversing with people around the room Triage Information Reviewed: Yes Vital Signs On Initial Exam: Initial Vitals Temp Pulse Resp BP Pulse Ox 98.4 F 102 20 183/124 97 08/04/17 22:35 08/04/17 22:35 08/04/17 22:35 08/04/17 22:35 08/04/17 22:35 Vital Signs Reviewed: Yes Completion Of Physical Exam Limited Due To: Level 5 - Level 5 caveat due to intoxication Diagnostics - Vital Signs Vital Signs Temp Pulse Resp BP Pulse Ox 08/04/17 22:35 98.4 F 102 20 183/124 97 - Laboratory Result Diagrams: 08/05/17 01:15 08/05/17 01:15 Lab Statement: Any lab studies that have been ordered have been reviewed, and results considered in the medical decision making process. - CT Brain CT CT Interpretation: No Acute Changes - No definite evidence of acute pathology. ED phyisican reviewed radiology report and agrees. CT Interpretation Completed By: Radiologist Re-Evaluation - Re-Evaluation First Eval Re-Evaluation Time: 02:39 Comment: Pt is sleeping comfortably and is in no repsiratory distress. Vital signs stable. Course/Dx - Course Assessment/Plan: Pt is a 67 y/o M BIBA accompanied by police who presents to the ED as a 941 due to SIs. Per EMS, earlier, the pt was stating that he was suicidal and wanted the police to kill him. He had been trying to get into a cops vehicle and was tased 2x with the barbs removed [employer]. Though, upon EMS arrival, the pt denies SIs/HIs. Allergy noted. Elevated BP noted. Level 5 caveat due to intoxication. Pt is intoxicated, not giving any additional story, just keeps conversing with people throughout the room. He said he was suicidal and wanted the police to kill him. He will need to sober up so that we can do a better evaluation of his psychiatric state. We will give him Ativan, Haldol and Benadryl. Upon completion of the M[facility] and consultation with Dr. Quintero it has been determined that the pt will be admitted with Dx of depression and SIs. - Differential Dx/Clinical Impression Provider Diagnosis: Depression, Suicidal ideations Discharge - Discharge Plan Condition: Stable Disposition: ADMITTED TO [facility] Referrals: Aidan Johnson, COMPETITIVE SHOPPER [Primary Care Provider] - The documentation as recorded by the Geovanna esquivel Rebecca accurately reflects the service I personally performed and the decisions made by me, Johana Herrera MD.
--- NOTE | 2017-08-05 07:43 | RAD ---
INDICATION: Altered mental status. COMPARISON: Comparison is made with a prior CT of the brain from December 24, 2016. TECHNIQUE: Contiguous axial sections of the brain were obtained from the skull base to the vertex without contrast. The exam is limited due to motion artifact. FINDINGS: The ventricles and cisterns appear to be within normal limits. There are bilateral low density extra-axial fluid collections left slightly greater than right measuring up to 0.7 cm on the left side and 0.3 cm in right. These have decreased in size significantly from the prior exam. The patient has undergone bilateral silvia hole placement. These collections would be most consistent with chronic subdural hematomas or subdural hygromas. No midline shift or significant mass effect is seen. No other focal abnormalities are seen. No fracture is seen. The visualized portion of the paranasal sinuses and mastoid air cells appear clear. IMPRESSION: INTERVAL RESOLUTION OF HYPERDENSE SUBDURAL HEMATOMAS WITH SMALLER RESIDUAL HYPODENSE COLLECTIONS MOST CONSISTENT WITH CHRONIC SUBDURAL HEMATOMAS OR SUBDURAL HYGROMAS WITHOUT MASS EFFECT.
[2017-08-05] MEDS: Hydrochlorothiazide TAB* 25 MG PO SCH (10:35)
[2017-08-05] MEDS: Divalproex DR TAB(*) 500 MG PO SCH ×2 (10:35→21:15)
[2017-08-05] MEDS: Vitamin THERAPEUTIC TAB PO SCH (10:35)
[2017-08-05] MEDS: Haloperidol TAB* 5 MG PO SCH ×2 (10:35→12:45)
[2017-08-05 10:41] LABS: Urine Bacteria Absent (Absent); Urine Bilirubin Negative (Negative); Urine Glucose Negative (Negative); Urine Nitrite Positive (Negative)
[2017-08-05 11:12] LABS: Benzodiazepine Urine Screen None Detected (None Detect)
[2017-08-05] MEDS: Nicotine Inhaler* 10 MG AMP INH PRN ×2 (12:45→21:16)
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
[2017-08-05] MEDS: Haloperidol TAB* 10 MG PO SCH (21:15)
[2017-08-06] MEDS: Vitamin THERAPEUTIC TAB PO SCH (09:48)
[2017-08-06] MEDS: Divalproex DR TAB(*) 500 MG PO SCH ×2 (09:48→20:12)
[2017-08-06] MEDS: Hydrochlorothiazide TAB* 25 MG PO SCH (09:48)
[2017-08-06] MEDS: Nicotine Inhaler* 10 MG AMP INH PRN ×3 (09:48→20:12)
[2017-08-06] MEDS: Haloperidol TAB* 10 MG PO SCH (20:11)
[2017-08-07] MEDS: Nicotine Inhaler* 10 MG AMP INH PRN ×4 (07:25→23:55)
[2017-08-07] MEDS: Vitamin THERAPEUTIC TAB PO SCH (07:26)
[2017-08-07] MEDS: Divalproex DR TAB(*) 500 MG PO SCH ×2 (07:26→20:47)
[2017-08-07] MEDS: Hydrochlorothiazide TAB* 25 MG PO SCH (07:26)
--- NOTE | 2017-08-07 12:11 | PN ---
Subjective - Subjective Service Type: 24816 Hosp care 25 min moderate complexity Subjective: Patient states he likes to be called "Eleuterio." He has poor insight into events leading to admission. He states he was arguing with acquaintances from the friendship center and this escalated to the police being called. He denies AH or VH. He endorses paranoia that many people are after him, especially women. He states he was taking haloperidol decanoate when living in [place], [place]. He heard that it would be too expensive in [place] and has been minimally adherent to oral medications. He states he was seeing Dr Payne at [facility] and has an appt on Aug 25 with newly assigned psychiatrist. He does not recall having a therapist at [facility]. He states he meets with is field crop technical officer, Kerri, on tuesdays. Objective - Appearance Appearance: Thin Framed Dysmorphic Features: Yes Hygiene: Normal Grooming: Fairly Well Kept - Behavior Psychomotor Activities: Normal Exhibits Abnormal Movement: No - Attitude and Relatedness Attitude and Relatedness: Cooperative Eye Contact: Good - Speech Quality: Unpressured Latencies: Normal Quantity: Appropriate - mumbled - Mood Patient's Decription of Mood: "Okay" - Affect Observed Affect: Good Affect Consistent with: Euthymia - Thought Process Patient's Thought Process: Tangential Thought Content: Yes Paranoid Ideation, No Passive Wish, No Suicidal Planning, No Homicidal Ideation - Sensorium Experiencing Hallucinations: No, Sensorium is Clear Type of Hallucinations: Visual: No, Auditory: No, Command: No - Level of Consciousness Level of Consciousness: Alert Orientation: Yes Intact, Yes Orientated to Time, Yes Orientated to Place, Yes Orientated to Person - Impulse Control Impulse Control: Tenuous - Insight and Judgement Insight and Judgement: Poor - Group Participation Particating in Group Activities: Yes - Medication Management Medication Management Adherence: Yes Assessment - Assessment Merits Inpatient Hospitalization: For Immediate Safety, For Stabilization, For Discharge Planning Inpatient DSM-IV Dx: schizophrenia; alcohol use d/o, in remission; tobacco use d /o; hx TBI. Clinical Impression: 67yo black male with a history of schizophrenia and multiple psychiatric hospitalizations. He was brought to the ED via police due to disorganized behavior and requesting that they shoot him. He merits hospitalization for immediate safety and stabilization. Plan - Plan Treatment Plan: Name: JOSE WADE Birthdate: 1950 [id number] Continue acute intensive psychiatric treatment. Obtain collateral from outpatient providers. Consider haloperidol decanoate and continue depakote. Obtain bloodwork in am: valproic acid level, lipid panel, Hgba1c, folate, sickle cell screening. Continued Medication Management: Different Medication Medications: Current Medications Acetaminophen (Tylenol Tab*) 650 mg PO Q4H PRN PRN Reason: PAIN or TEMP > 101 F Al Hydrox/Mg Hydrox/Simethicone (Maalox Plus*) 30 ml PO Q4H PRN PRN Reason: INDIGESTION Device (Nicotine Mouth Piece*) 1 each INH .[facility] Last Admin: 08/05/17 12:45 Dose: 1 each Divalproex Sodium (Depakote Dr Tab(*)) 500 mg PO BID JULES Last Admin: 08/07/17 07:26 Dose: 500 mg Haloperidol (Haldol Tab*) 10 mg PO BEDTIME JULES Last Admin: 08/06/17 20:11 Dose: 10 mg Hydrochlorothiazide (Hydrodiuril Tab*) 50 mg PO DAILY JULES Last Admin: 08/07/17 07:26 Dose: 50 mg Multivitamins (Theragran Tab*) 1 tab PO DAILY JULES Last Admin: 08/07/17 07:26 Dose: 1 tab Nicotine (Nicotine Inhaler*) 10 mg INH Q2H PRN PRN Reason: CRAVING Last Admin: 08/07/17 12:01 Dose: 10 mg - Discharge Plan Discharge Plan: Outpatient Follow Up Outpatient Program: [facility]
[2017-08-07] MEDS: Haloperidol TAB* 10 MG PO SCH (20:47)
[2017-08-08 07:35] LABS: HDL Cholesterol 71.1 mg/dL
[2017-08-08] MEDS: Divalproex DR TAB(*) 500 MG PO SCH ×2 (08:31→20:45)
[2017-08-08] MEDS: Vitamin THERAPEUTIC TAB PO SCH (08:31)
[2017-08-08] MEDS: Hydrochlorothiazide TAB* 25 MG PO SCH (08:31)
[2017-08-08 08:40] LABS: Folate 9.91 ng/mL (>3.99)
[2017-08-08] MEDS: Nicotine Inhaler* 10 MG AMP INH PRN ×3 (09:55→20:46)
[2017-08-08] MEDS ORDERED: Haloperidol Decanoate* 50 MG/ML AMP IM SCH (11:00)
--- NOTE | 2017-08-08 15:58 | PN ---
Subjective - Subjective Service Type: 45761 Hosp care 15 min low complexity Subjective: Patient agreed to haloperidol decanoate and received this today. He states that he "didn't see the blood" during blood draw this morning. He states that he was told by community sports coordinator that blood was indeed being drawn. He states he is thinking of returning to live near family in [place]. Inclinometer Tester notified him that he will be able to return to [facility] after discharge and he agreed with this. Notified of L lab results. Objective - Appearance Appearance: Thin Framed Dysmorphic Features: No Hygiene: Normal Grooming: Fairly Well Kept - Behavior Psychomotor Activities: Normal Exhibits Abnormal Movement: No - Attitude and Relatedness Attitude and Relatedness: Cooperative Eye Contact: Good - Speech Quality: Unpressured Latencies: Normal Quantity: Appropriate - Mood Patient's Decription of Mood: "Good" - Affect Observed Affect: Good Affect Consistent with: Euthymia - Thought Process Patient's Thought Process: Coherent, Goal Directed Thought Content: No Passive Wish, No Suicidal Planning, No Homicidal Ideation, No Paranoid Ideation - Sensorium Experiencing Hallucinations: No, Sensorium is Clear Type of Hallucinations: Visual: No, Auditory: No, Command: No - Level of Consciousness Level of Consciousness: Alert Orientation: Yes Intact, Yes Orientated to Time, Yes Orientated to Place, Yes Orientated to Person - Impulse Control Impulse Control: Tenuous - Insight and Judgement Insight and Judgement: Fair - Group Participation Particating in Group Activities: Yes - Medication Management Medication Management Adherence: Yes Assessment - Assessment Merits Inpatient Hospitalization: For Immediate Safety, For Stabilization, To Initiate Treatment, For Discharge Planning Inpatient DSM-IV Dx: schizophrenia; alcohol use d/o, in remission; tobacco use d /o; hx TBI. Clinical Impression: 67yo black male with a history of schizophrenia and multiple psychiatric hospitalizations. He was brought to the ED via police due to disorganized behavior and requesting that they shoot him. He merits hospitalization for immediate safety and stabilization. Plan - Plan Treatment Plan: Name: JOSE WADE Birthdate: 1950 [id number] Continue acute intensive psychiatric treatment. Obtain collateral from outpatient providers. Start haloperidol decanoate and continue depakote. Continued Medication Management: Different Medication Medications: Current Medications Acetaminophen (Tylenol Tab*) 650 mg PO Q4H PRN PRN Reason: PAIN or TEMP > 101 F Al Hydrox/Mg Hydrox/Simethicone (Maalox Plus*) 30 ml PO Q4H PRN PRN Reason: INDIGESTION Device (Nicotine Mouth Piece*) 1 each INH .[facility] Last Admin: 08/05/17 12:45 Dose: 1 each Divalproex Sodium (Depakote Dr Tab(*)) 500 mg PO BID [facility] Last Admin: 08/08/17 08:31 Dose: 500 mg Haloperidol Decanoate (Haldol Decanoate*) 100 mg IM Q28D [facility] Last Admin: 08/08/17 14:24 Dose: 100 mg Hydrochlorothiazide (Hydrodiuril Tab*) 50 mg PO DAILY [facility] Last Admin: 08/08/17 08:31 Dose: 50 mg Multivitamins (Theragran Tab*) 1 tab PO DAILY [facility] Last Admin: 08/08/17 08:31 Dose: 1 tab Nicotine (Nicotine Inhaler*) 10 mg INH Q2H PRN PRN Reason: CRAVING Last Admin: 08/08/17 15:33 Dose: 10 mg - Discharge Plan Discharge Plan: Outpatient Follow Up Outpatient Program: [facility]
[2017-08-09] MEDS: Nicotine Inhaler* 10 MG AMP INH PRN ×4 (00:29→22:01)
[2017-08-09] MEDS: Divalproex DR TAB(*) 500 MG PO SCH ×2 (09:11→21:20)
[2017-08-09] MEDS: Vitamin THERAPEUTIC TAB PO SCH (09:11)
[2017-08-09] MEDS: Hydrochlorothiazide TAB* 25 MG PO SCH (09:11)
[2017-08-09] MEDS: Acetaminophen TAB* 325 MG PO PRN (17:04)
[2017-08-10] MEDS: Nicotine Inhaler* 10 MG AMP INH PRN ×4 (07:37→21:01)
[2017-08-10] MEDS: Vitamin THERAPEUTIC TAB PO SCH (08:38)
[2017-08-10] MEDS: Divalproex DR TAB(*) 500 MG PO SCH ×2 (08:38→21:02)
[2017-08-10] MEDS: Hydrochlorothiazide TAB* 25 MG PO SCH (08:38)
--- NOTE | 2017-08-10 13:11 | PN ---
Subjective - Subjective Service Type: 15898 Hosp care 15 min low complexity Subjective: Late entry for 08/09/17 encounter: Patient is calm and pleasant. He is interactive with staff and peers, jovial at times. Patient presents for meals and groups. Patient is organized in conversation and does not appear to be responding to internal stimuli. He reports sleeping well and this is verified by staff. Objective - Appearance Appearance: Thin Framed Dysmorphic Features: No Hygiene: Normal Grooming: Well Kept - Behavior Psychomotor Activities: Normal Exhibits Abnormal Movement: No - Attitude and Relatedness Attitude and Relatedness: Cooperative Eye Contact: Good - Speech Quality: Unpressured Latencies: Normal Quantity: Appropriate - Mood Patient's Decription of Mood: "Good" - Affect Observed Affect: Good Affect Consistent with: Euthymia - Thought Process Patient's Thought Process: Coherent, Goal Directed Thought Content: No Passive Wish, No Suicidal Planning, No Homicidal Ideation, No Paranoid Ideation - Sensorium Experiencing Hallucinations: No, Sensorium is Clear Type of Hallucinations: Visual: No, Auditory: No, Command: No - Level of Consciousness Level of Consciousness: Alert Orientation: Yes Intact, Yes Orientated to Time, Yes Orientated to Place, Yes Orientated to Person - Impulse Control Impulse Control: Intact - Insight and Judgement Insight and Judgement: Good - Group Participation Particating in Group Activities: Yes - Medication Management Medication Management Adherence: Yes Assessment - Assessment Merits Inpatient Hospitalization: For Immediate Safety, For Stabilization, Pending Safe DC Plan Inpatient DSM-IV Dx: schizophrenia; alcohol use d/o, in remission; tobacco use d /o; hx TBI. Clinical Impression: 67yo black male with a history of schizophrenia and multiple psychiatric hospitalizations. He was brought to the ED via police due to disorganized behavior and requesting that they shoot him. He merits hospitalization for immediate safety and stabilization. Plan - Plan Treatment Plan: Name: JOSE WADE Birthdate: 1950 [id number] Continue acute intensive psychiatric treatment. Obtain collateral from outpatient providers. Start haloperidol decanoate and continue depakote. 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 Continued Medication Management: Different Medication Medications: Current Medications Acetaminophen (Tylenol Tab*) 650 mg PO Q4H PRN PRN Reason: PAIN or TEMP > 101 F Last Admin: 08/09/17 17:04 Dose: 650 mg Al Hydrox/Mg Hydrox/Simethicone (Maalox Plus*) 30 ml PO Q4H PRN PRN Reason: INDIGESTION Device (Nicotine Mouth Piece*) 1 each INH .[facility] Last Admin: 08/05/17 12:45 Dose: 1 each Divalproex Sodium (Depakote Dr Tab(*)) 500 mg PO BID [facility] Last Admin: 08/10/17 08:38 Dose: 500 mg Haloperidol Decanoate (Haldol Decanoate*) 100 mg IM Q28D [facility] Last Admin: 08/08/17 14:24 Dose: 100 mg Hydrochlorothiazide (Hydrodiuril Tab*) 50 mg PO DAILY [facility] Last Admin: 08/10/17 08:38 Dose: 50 mg Multivitamins (Theragran Tab*) 1 tab PO DAILY [facility] Last Admin: 08/10/17 08:38 Dose: 1 tab Nicotine (Nicotine Inhaler*) 10 mg INH Q2H PRN PRN Reason: CRAVING Last Admin: 08/10/17 11:54 Dose: 10 mg - Discharge Plan Discharge Plan: Outpatient Follow Up Outpatient Program: [facility]
[2017-08-10] MEDS: Acetaminophen TAB* 325 MG PO PRN (14:10)
--- NOTE | 2017-08-10 16:35 | PN ---
Subjective - Subjective Service Type: 16779 Hosp care 15 min low complexity Subjective: Patient euthymic and talkative. He is calm and in behavioral control, participates in unit programming. Noted to be slightly hyperverbal and intrusive during group. His contributions are organized and meaningful to topic at hand. Objective - Appearance Appearance: Thin Framed Dysmorphic Features: No Hygiene: Normal Grooming: Well Kept - Behavior Psychomotor Activities: Normal Exhibits Abnormal Movement: No - Attitude and Relatedness Attitude and Relatedness: Cooperative Eye Contact: Good - Speech Quality: Unpressured Latencies: Normal Quantity: Copious - Mood Patient's Decription of Mood: "Good" - Affect Observed Affect: Good Affect Consistent with: Euthymia - Thought Process Patient's Thought Process: Coherent, Goal Directed Thought Content: No Passive Wish, No Suicidal Planning, No Homicidal Ideation, No Paranoid Ideation - Level of Consciousness Level of Consciousness: Alert Orientation: Yes Intact, Yes Orientated to Time, Yes Orientated to Place, Yes Orientated to Person - Impulse Control Impulse Control: Intact - Insight and Judgement Insight and Judgement: Good - Group Participation Particating in Group Activities: Yes - Medication Management Medication Management Adherence: Yes Assessment - Assessment Merits Inpatient Hospitalization: For Immediate Safety, For Stabilization, For Discharge Planning, Pending Safe DC Plan Inpatient DSM-IV Dx: schizophrenia; alcohol use d/o, in remission; tobacco use d /o; hx TBI. Clinical Impression: 67yo black male with a history of schizophrenia and multiple psychiatric hospitalizations. He was brought to the ED via police due to disorganized behavior and requesting that they shoot him. He merits hospitalization for immediate safety and stabilization. Plan - Plan Treatment Plan: Name: JOSE WADE Birthdate: 1950 [id number] Continue acute intensive psychiatric treatment. Obtain collateral from outpatient providers. Start haloperidol decanoate and continue depakote. 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 Continued Medication Management: Different Medication Medications: Current Medications Acetaminophen (Tylenol Tab*) 650 mg PO Q4H PRN PRN Reason: PAIN or TEMP > 101 F Last Admin: 08/10/17 14:10 Dose: 650 mg Al Hydrox/Mg Hydrox/Simethicone (Maalox Plus*) 30 ml PO Q4H PRN PRN Reason: INDIGESTION Device (Nicotine Mouth Piece*) 1 each INH [facility] Last Admin: 08/05/17 12:45 Dose: 1 each Divalproex Sodium (Depakote Dr Tab(*)) 500 mg PO BID [facility] Last Admin: 08/10/17 08:38 Dose: 500 mg Haloperidol Decanoate (Haldol Decanoate*) 100 mg IM Q28D [facility] Last Admin: 08/08/17 14:24 Dose: 100 mg Hydrochlorothiazide (Hydrodiuril Tab*) 50 mg PO DAILY [facility] Last Admin: 08/10/17 08:38 Dose: 50 mg Multivitamins (Theragran Tab*) 1 tab PO DAILY [facility] Last Admin: 08/10/17 08:38 Dose: 1 tab Nicotine (Nicotine Inhaler*) 10 mg INH Q2H PRN PRN Reason: CRAVING Last Admin: 08/10/17 11:54 Dose: 10 mg - Discharge Plan Discharge Plan: Outpatient Follow Up Outpatient Program: [facility]
--- NOTE | 2017-08-10 16:37 | PN ---
MHU: Group Therapy Note - Service Type Service Type: [id number] Group Psychotherapy - Medication Education Group: Patient was attentive and participatory in group, and remained in good behavioral control. Patient expressed positive insights regarding relevant treatment interventions. Patient stated understanding of material discussed and had appropriate questions. - Group Participation Patient Participating in Group: Yes Level of Group Participation: Attentive, Spontaneously Participate
[2017-08-11] MEDS: Vitamin THERAPEUTIC TAB PO SCH (09:28)
[2017-08-11] MEDS: Divalproex DR TAB(*) 500 MG PO SCH (09:28)
[2017-08-11] MEDS: Hydrochlorothiazide TAB* 25 MG PO SCH (09:28)
--- NOTE | 2017-08-11 12:03 | PN ---
MHU: Group Therapy Note - Service Type Service Type: 34086 Group Psychotherapy - Cognitive Behavioral Group Therapy ( CBT):Patient attended CBT programming this morning and presented with flat affect that did not vary with discussion. Although responsive to direct prompts to respond to questions, patient did not engage in spontaneous conversation.
--- NOTE | 2017-08-11 14:28 | PN ---
Subjective - Subjective Subjective: Patient calm and in behavioral control. Notified of increase in depakote dosing to target intrusiveness during conversations. Interactive and social with peers and staff. 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 Denies AH or VH, delusions or persecutions. Objective - Appearance Appearance: Thin Framed Dysmorphic Features: No Hygiene: Normal Grooming: Well Kept - Behavior Psychomotor Activities: Normal Exhibits Abnormal Movement: No - Attitude and Relatedness Attitude and Relatedness: Cooperative Eye Contact: Good - Speech Quality: Pressured Latencies: Normal Quantity: Copious - Mood Patient's Decription of Mood: "Good" - Affect Observed Affect: Good Affect Consistent with: Euthymia - Thought Process Patient's Thought Process: Coherent, Tangential Thought Content: No Passive Wish, No Suicidal Planning, No Homicidal Ideation, No Paranoid Ideation - Sensorium Experiencing Hallucinations: No, Sensorium is Clear Type of Hallucinations: Visual: No, Auditory: No, Command: No - Level of Consciousness Level of Consciousness: Alert Orientation: Yes Intact, Yes Orientated to Time, Yes Orientated to Place, Yes Orientated to Person - Impulse Control Impulse Control: Intact - Insight and Judgement Insight and Judgement: Fair - Group Participation Particating in Group Activities: Yes - Medication Management Medication Management Adherence: Yes Assessment - Assessment Merits Inpatient Hospitalization: For Immediate Safety, For Stabilization, For Discharge Planning, Pending Safe DC Plan Inpatient DSM-IV Dx: schizophrenia; alcohol use d/o, in remission; tobacco use d /o; hx TBI. Clinical Impression: 67yo black male with a history of schizophrenia and multiple psychiatric hospitalizations. He was brought to the ED via police due to disorganized behavior and requesting that they shoot him. He merits hospitalization for immediate safety and stabilization. Plan - Plan Treatment Plan: Name: JOSE WADE Birthdate: 1950 [id number] Continue acute intensive psychiatric treatment. Increase depakote and obtain valproic acid level on 08/14/17. Received haloperidol decanoate injection. 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 Continued Medication Management: Different Medication Medications: Current Medications Acetaminophen (Tylenol Tab*) 650 mg PO Q4H PRN PRN Reason: PAIN or TEMP > 101 F Last Admin: 08/10/17 14:10 Dose: 650 mg Al Hydrox/Mg Hydrox/Simethicone (Maalox Plus*) 30 ml PO Q4H PRN PRN Reason: INDIGESTION Device (Nicotine Mouth Piece*) 1 each INH .[facility] Last Admin: 08/05/17 12:45 Dose: 1 each Divalproex Sodium (Depakote Er Tab(*)) 1,500 mg PO BEDTIME [facility] Haloperidol Decanoate (Haldol Decanoate*) 100 mg IM Q28D [facility] Last Admin: 08/08/17 14:24 Dose: 100 mg Hydrochlorothiazide (Hydrodiuril Tab*) 50 mg PO DAILY [facility] Last Admin: 08/11/17 09:28 Dose: 50 mg Multivitamins (Theragran Tab*) 1 tab PO DAILY [facility] Last Admin: 08/11/17 09:28 Dose: 1 tab Nicotine (Nicotine Inhaler*) 10 mg INH Q2H PRN PRN Reason: CRAVING Last Admin: 08/10/17 21:01 Dose: 10 mg - Discharge Plan Discharge Plan: Outpatient Follow Up Outpatient Program: [facility]
[2017-08-11] MEDS: Nicotine Inhaler* 10 MG AMP INH PRN ×3 (15:45→21:31)
[2017-08-11] MEDS: Divalproex ER TAB(*) 500 MG PO SCH (21:31)
[2017-08-12] MEDS: Nicotine Inhaler* 10 MG AMP INH PRN ×5 (06:47→23:18)
[2017-08-12] MEDS: Vitamin THERAPEUTIC TAB PO SCH (09:27)
[2017-08-12] MEDS: Hydrochlorothiazide TAB* 25 MG PO SCH (09:27)
[2017-08-12] MEDS: Divalproex ER TAB(*) 500 MG PO SCH (21:11)
[2017-08-13] MEDS: Nicotine Inhaler* 10 MG AMP INH PRN ×5 (06:29→22:27)
[2017-08-13] MEDS: Vitamin THERAPEUTIC TAB PO SCH (09:21)
[2017-08-13] MEDS: Hydrochlorothiazide TAB* 25 MG PO SCH (09:21)
[2017-08-13] MEDS: Acetaminophen TAB* 325 MG PO PRN (09:21)
[2017-08-13] MEDS: Divalproex ER TAB(*) 500 MG PO SCH (21:22)
[2017-08-14] MEDS: Nicotine Inhaler* 10 MG AMP INH PRN ×5 (00:42→21:12)
[2017-08-14] MEDS: Hydrochlorothiazide TAB* 25 MG PO SCH (09:56)
[2017-08-14] MEDS: Vitamin THERAPEUTIC TAB PO SCH (09:56)
--- NOTE | 2017-08-14 10:49 | PN ---
Subjective - Subjective Service Type: 15300 Hosp care 15 min low complexity Subjective: Patient is euthymic with bright affect. He is calm and in behavioral control, reports sleeping well. He states understanding of discharge planning process to include [facility] team meeting with him this morning. Notified of normal valproic acid level. Discussed awaiting housing options. He reports attempt to apply for [employer] and was turned down due to a misdemeanor and disorderly conduct. He states this was in the early and that he has spoken with Melvi from [facility] and Kerri from probation to see if this is a barrier to housing at [employer] [facility] [employer]. Objective - Appearance Appearance: Well Developed/Nourished Dysmorphic Features: No Hygiene: Normal Grooming: Well Kept - Behavior Psychomotor Activities: Normal Exhibits Abnormal Movement: No - Attitude and Relatedness Attitude and Relatedness: Cooperative Eye Contact: Good - Speech Quality: Unpressured Latencies: Normal Quantity: Appropriate - Mood Patient's Decription of Mood: "Good" - Affect Observed Affect: Good Affect Consistent with: Euthymia - Thought Process Patient's Thought Process: Coherent, Goal Directed Thought Content: No Passive Wish, No Suicidal Planning, No Homicidal Ideation, No Paranoid Ideation - Sensorium Experiencing Hallucinations: No, Sensorium is Clear Type of Hallucinations: Visual: No, Auditory: No, Command: No - Level of Consciousness Level of Consciousness: Alert Orientation: Yes Intact, Yes Orientated to Time, Yes Orientated to Place, Yes Orientated to Person - Impulse Control Impulse Control: Intact - Insight and Judgement Insight and Judgement: Good - Group Participation Particating in Group Activities: Yes - Medication Management Medication Management Adherence: Yes Assessment - Assessment Merits Inpatient Hospitalization: For Immediate Safety, For Stabilization, Consolidate Improvements, For Discharge Planning, Pending Safe DC Plan Inpatient DSM-IV Dx: schizophrenia; alcohol use d/o, in remission; tobacco use d /o; hx TBI. Clinical Impression: 67yo black male with a history of schizophrenia and multiple psychiatric hospitalizations. He was brought to the ED via police due to disorganized behavior and requesting that they shoot him. He merits hospitalization for immediate safety and stabilization. Plan - Plan Treatment Plan: Name: JOSE WADE Birthdate: 1950 [id number] Continue acute intensive psychiatric treatment. valproic acid level on 10/23/17 therapeutic at 77.0. Received haloperidol decanoate injection on . 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 Pt agreeable to ACT referral. Continued Medication Management: Different Medication Medications: Current Medications Acetaminophen (Tylenol Tab*) 650 mg PO Q4H PRN PRN Reason: PAIN or TEMP > 101 F Last Admin: 08/13/17 09:21 Dose: 650 mg Al Hydrox/Mg Hydrox/Simethicone (Maalox Plus*) 30 ml PO Q4H PRN PRN Reason: INDIGESTION Device (Nicotine Mouth Piece*) 1 each INH .[facility] Last Admin: 08/05/17 12:45 Dose: 1 each Divalproex Sodium (Depakote Er Tab(*)) 1,500 mg PO BEDTIME [facility] Last Admin: 08/13/17 21:22 Dose: 1,500 mg Haloperidol Decanoate (Haldol Decanoate*) 100 mg IM Q28D [facility] Last Admin: 08/08/17 14:24 Dose: 100 mg Hydrochlorothiazide (Hydrodiuril Tab*) 50 mg PO DAILY [facility] Last Admin: 08/14/17 09:56 Dose: 50 mg Multivitamins (Theragran Tab*) 1 tab PO DAILY [facility] Last Admin: 08/14/17 09:56 Dose: 1 tab Nicotine (Nicotine Inhaler*) 10 mg INH Q2H PRN PRN Reason: CRAVING Last Admin: 08/14/17 05:47 Dose: 10 mg - Discharge Plan Discharge Plan: Outpatient Follow Up Outpatient Program: [facility]
[2017-08-14] MEDS: Acetaminophen TAB* 325 MG PO PRN (11:08)
[2017-08-14] MEDS: Divalproex ER TAB(*) 500 MG PO SCH (21:12)
[2017-08-15] MEDS: Nicotine Inhaler* 10 MG AMP INH PRN ×2 (04:43→07:53)
[2017-08-15] MEDS: Hydrochlorothiazide TAB* 25 MG PO SCH (07:53)
[2017-08-15] MEDS: Vitamin THERAPEUTIC TAB PO SCH (07:53)
[2017-08-15 10:07] VITALS: BP 133/76
--- NOTE | 2017-08-15 17:00 | DS ---
Subjective - Subjective Service Types: 42938 Hosp [place] Day Mgmt simple under 30 min Discharge Date: 08/15/17 Subjective: Improved. Patient was calm and in behavioral control. He was organized in speech and able to make needs known. He was pleasant and interactive with staff and peers, jovial at times. Patient was generally a pleasure to be around. He agreed to be a participate of [facility] and to utilize DSS for emergency housing until a more permanent option is available. He denies SI or HI/. He denies delusions or AV hallucinations. Objective - Appearance Appearance: Well Developed/Nourished Dysmorphic Features: No Hygiene: Normal Grooming: Well Kept - Behavior Psychomotor Activities: Normal Exhibits Abnormal Movement: No - Attitude and Relatedness Attitude and Relatedness: Cooperative Eye Contact: Good - Speech Quality: Unpressured Latencies: Normal Quantity: Appropriate - Mood Patient's Decription of Mood: "Good" - Affect Observed Affect: Good Affect Consistent with: Euthymia - Thought Process Patient's Thought Process: Coherent, Goal Directed Thought Content: No Passive Wish, No Suicidal Planning, No Homicidal Ideation, No Paranoid Ideation - Sensorium Experiencing Hallucinations: No, Sensorium is Clear Type of Hallucinations: Visual: No, Auditory: No, Command: No - Level of Consciousness Level of Consciousness: Alert Orientation: Yes Intact, Yes Orientated to Time, Yes Orientated to Place, Yes Orientated to Person - Impulse Control Impulse Control: Intact - Insight and Judgement Insight and Judgement: Good - Group Participation Particating in Group Activities: Yes - Medication Management Medication Management Adherence: Yes Treatment Course & Assessment Clinical Course & Impression: 67yo black male with a history of schizophrenia and multiple psychiatric hospitalizations. He was brought to the ED via police due to disorganized behavior and requesting that they shoot him. He was admitted to the behavioral services unit on involuntary status. He was placed on 15min checks for safety and outpatient medications were continued. He reported past efficacy with haloperidol decanoate and agreed to reinstate monthly DOWNEY. Gerardo received haloperidol decanoate 100mg IM in R deltoid on 08/08/17. He was noted to be more organized and in behavioral control. He was noted to be intrusive and hyperverbal. His valproic acid level was 59.0 and depakote ER dose increased to 1500mg qhs. After 3 days, valproic acid level obtained and was therapeutic at 77.0. Other labs obtained included hgba1c and lipid profile. He was decreased to q30min observation and allowed daily staff pass. He was participatory in programming and interactive with peers. He denied SI or urges to self harm. He denied AH or VH and was not noted to react to internal stimuli. Discharge planning identified need for [employer] application and submitted. Patient deemed appropriate for ACT services and was accepted. Patient was enthusiastic about referrals. He will work with DSS for emergency housing while awaiting a more permanent placement. Merits Inpatient Hospitalization: No Clear for Discharge: Adequate Clinical Respons, Acceptable Safety Profile Inpatient DSM-IV Dx: schizophrenia; alcohol use d/o, in remission; tobacco use d /o; hx TBI; HTN - Ronks I Mental Illness: schizophrenia, paranoid type; alcohol use d/o; cannabis use d/o ; tobacco use d/o - Ronks III Medical Illness: HTN Discharge Planning - Discharge Planning Discharge Plan: Outpatient Follow Up Outpatient Program: ACT services Recommendations for Continuing Care: Medication Management, Routine Metabolic Monitoring, Therapeutic Drug Levels, Primary Care Followup Medications: Divalproex ER TAB(*) [Depakote ER TAB(*)] 1,500 mg PO BEDTIME #90 tab.er [Rx] Haloperidol Decanoate* [Haldol Decanoate*] 100 mg IM Q28D #2 ml 08/15/17 [Rx] Hydrochlorothiazide TAB* [Hydrodiuril TAB*] 50 mg PO DAILY #30 tab 08/15/17 [Rx] Nicotine Inhaler* 10 mg INH Q2H PRN #1 box 08/15/17 [Rx] All of the above were electronically prescribed to [facility]. Discharge Planning: Prescriptions provided for discharge [X] Yes [] No Follow up care details as per social work arrangements. ACT team Patient response to discharge plan: [X] eager for discharge [X] agreeable with discharge plan [] ambivalent about discharge [] disagrees with discharge today
== END 2017-08-15 11:00 | disposition home or self-care (01) | DRG 885 ==
LOC: ED 22:29 → BSU 08-05 06:48
PROVIDERS: ADMIT Psychiatry & Neurology Psychiatry; ATTEND Psychiatry & Neurology Psychiatry
DX: F20.9 Schizophrenia, unspecified (principal); E78.5 Hyperlipidemia, unspecified; F10.21 Alcohol dependence, in remission; F17.210 Nicotine dependence, cigarettes, uncomplicated; I10 Essential (primary) hypertension; Z87.820 Personal history of traumatic brain injury
CPT/HCPCS: 36415; 70450; 80053; 80061; 80164; 80307; 80320; 80329; 81003; 81015; 82746; 83036; 84443; 85025; 85660; 87077; 87086; 87186; 90853; 99222; 99231; 99232; 99238; A9270-GY; G0480; J1200; J1630; J1631; J2060

== ENCOUNTER 2017-11-02 12:30 | Emergency (ER) | payer MEDICARE ==
--- NOTE | 2017-11-02 14:14 | UC ---
[place] Trauma HPI - HPI Summary HPI Summary: 67 YO MALE FELL 2 DAYS AGO AND HIT HIS LEFT LAT CHEST ON TABLE EDGE HURTS TO MOVE/TAKE A DEEP BREATH UNABLE TO SLEEP DUE TO PAIN NO SOB NO ABD PAIN - History Of Current Complaint Chief Complaint: UCUpperExtremity Stated Complaint: RIB PAIN PT FELL Time Seen by Provider: 11/02/17 13:22 Hx Obtained From: Patient Onset/Duration: Gradual Onset, Lasting Days Onset Of Pain: Immediate Severity Initially: Severe Severity Currently: Severe Pain Intensity: 10 Pain Scale Used: 0-10 Numeric Mechanism Of Injury: Fall From A Standing Position Aggravating Factor(s): Movement, Deep Breathing, Cough Alleviating factor(s): Nothing Associated Signs And Symptoms: Positive: Chest Pain - Allergies/Home Medications Allergies/Adverse Reactions: Allergies Allergy/AdvReac Type Severity Reaction Status Date / Time Aspirin Allergy Unknown GI Upset Verified 11/02/17 12:59 PMH/Surg Hx/FS Hx/Imm Hx Previously Healthy: Yes Cardiovascular History: Hypertension Psychological History: Schizophrenia Other History Of: Negative For: Anticoagulant Therapy - Surgical History Surgical History: Yes Surgery Procedure, Year, and Place: CRAINIOTOMY 2017 - Family History Known Family History: Positive: Unknown, Other - Yes - Depression (Parents), Yes - EtOH abuse (Parents) Family History: FHx of depression and EtOH abuse - Social History Alcohol Use: Occasionally Alcohol Amount: "Every now and then" Substance Use Type: Marijuana Substance Use Comment - Amount & Last Used: pt denied use tonight Smoking Status (MU): Heavy Every Day Tobacco Smoker Type: Cigarettes Amount Used/How Often: 1+ PPD - Immunization History Most Recent Influenza Vaccination: unk Most Recent Tetanus Shot: unk Most Recent Pneumonia Vaccination: patient unsure Review of Systems Constitutional: Negative Skin: Negative Eyes: Negative ENT: Negative Respiratory: Negative Cardiovascular: Chest Pain Gastrointestinal: Negative Genitourinary: Negative Motor: Negative Neurovascular: Negative Musculoskeletal: Negative Neurological: Negative Psychological: Negative Is Patient Immunocompromised?: No All Other Systems Reviewed And Are Negative: Yes Physical Exam Triage Information Reviewed: Yes Appearance: Well-Appearing, No Pain Distress, Well-Nourished Vital Signs: Initial Vital Signs Temp 99.1 F 11/02/17 12:51 Pulse 88 11/02/17 12:51 Resp 20 11/02/17 12:51 BP 154/66 11/02/17 12:51 Pulse Ox 100 11/02/17 12:51 Vital Signs Reviewed: Yes Eyes: Positive: Conjunctiva Clear ENT: Positive: Hearing grossly normal. Negative: Nasal congestion, Nasal drainage Neck: Positive: Supple, Nontender, No Lymphadenopathy Respiratory: Positive: Lungs clear, Normal breath sounds, No respiratory distress, No accessory muscle use. Negative: Chest non-tender Cardiovascular: Positive: RRR Abdomen Description: Positive: Nontender, No Organomegaly Bowel Sounds: Positive: Present Musculoskeletal: Positive: ROM Intact, No Edema Neurological: Positive: Alert Psychological Exam: Normal Diagnostics - Radiology No standard instances Xray Interpretation: No Acute Changes - IMPRESSION: No evidence for acute LEFT rib fracture or pneumothorax. Minimal LEFT basilar atelectasis Radiology Interpretation Completed By: Radiologist [place] Trauma Course/Dx - Differential Dx/Diagnosis Provider Diagnoses: LEFT RIB CONTUSIONS Discharge - Discharge Plan Condition: Stable Disposition: HOME Referrals: No Primary Care Phys,NOPCP [Primary Care Provider] - Images Front/Back of Body, Lg ([place]): 1 - PAIN HERE/PAIN WITH RIB [place]
--- NOTE | 2017-11-02 14:18 | RAD ---
Indication: Fell on Monday LEFT side chest table. [Pain with coughing and laughing. Affecting sleep. Comparison: July 04, 2017 Technique: Dual energy PA chest and 4 view dedicated LEFT unilateral rib series. Report: LEFT inferolateral skin marker indicating the site of clinical concern. No acute LEFT rib fracture, pleural effusion, or pneumothorax. Minimal linear atelectasis at the LEFT lung base. Healed LEFT posterior lateral fourth, fifth, and sixth rib fractures as on the prior exam. The heart, pulmonary vasculature, and mediastinal contours are unremarkable. IMPRESSION: No evidence for acute LEFT rib fracture or pneumothorax. Minimal LEFT basilar atelectasis.
[2017-11-02 14:57] VITALS: BP 153/93
== END 2017-11-02 14:50 | disposition home or self-care (01) ==
LOC: UCEAST 12:30
DX: S20.212A Contusion of left front wall of thorax, initial encounter (principal); W18.09XA Striking against other object with subsequent fall, initial encounter; Y93.9 Activity, unspecified; Y92.9 Unspecified place or not applicable; I10 Essential (primary) hypertension; F20.9 Schizophrenia, unspecified; F12.90 Cannabis use, unspecified, uncomplicated; Z88.6 Allergy status to analgesic agent; F17.210 Nicotine dependence, cigarettes, uncomplicated
CPT/HCPCS: 99212; G0463